=== PATIENT | female | born 1945 | race Caucasian/White ===

== ENCOUNTER → 2017-07-23 | Outpatient (CLI) | payer OTHER ==
[~2017-07-23] MED LIST: ACET-1256 PO; AMIO200T4 PO; CARV6.25 PO; DILT90TA PO; DOCU100C31 PO; FLM4 PO; FLUC100T4 PO; GADAVIST IV PRN; ISR/30 PO; LOSA50TA6 PO; MECL1TAB40 PO; NYSS/ PO; PANT40TA PO; POTA20TA16 PO; SENN-61 PO; SERT25TA PO
--- NOTE | 2017-07-23 14:28 | DIAGNOSTIC IMAGING REPORT ---
MRI OF THE BRAIN WITHOUT AND WITH IV CONTRAST CLINICAL HISTORY: I61.9 Intracerebral [id number] Pontine [id number] headaches, vertigo. COMPARISON STUDY: No previous studies for comparison. TECHNIQUE: MRI of the brain was performed from the vertex to the skull base utilizing various T1 and T2 weighted sequences. Following the IV administration of 5 mL of Gadavist contrast, additional enhanced images were obtained. FINDINGS: Sagittal T1, axial diffusion, proton density and T2 weighted axial, coronal FLAIR, and pre and post axial T1-weighted images were acquired. These were supplemented with post gadolinium coronal T1 weighted images. No intra or extra-axial mass lesions are visualized. Axial diffusion-weighted images reveal no evidence of acute or subacute infarction. There is no evidence of ventricular dilatation. Proton density T2-weighted and FLAIR images reveal scattered foci of increased T2 signal within the white matter, likely on a small vessel basis. There are no abnormal flow voids. There is an equivocal focus of hemosiderin deposition versus partial volume averaging in the region of the superior colliculus. There is a right maxilla sinus retention cyst. There is no evidence of pathologic enhancement. IMPRESSION: 1. No acute intracranial findings 2. The previously reported pontine hemorrhage is not visualized. There is no hydrocephalus. 3. No evidence of acute or subacute infarction 4. No evidence of intracranial mass 5. Equivocal small focus of hemosiderin deposition in the region of the superior colliculus. Electronically signed by: Perez Murillo M.D. 07/23/2017 2:26 PM Dictated Date/Time: 07/23/2017 2:17 PM
== END | disposition home or self-care (01) ==
LOC: C.MRI 12:57
PROVIDERS: ATTEND Psychiatry & Neurology Neurology
DX: H53.2 Diplopia (principal); I61.3 Nontraumatic intracerebral hemorrhage in brain stem; R51 Headache; S06.9X0A Unspecified intracranial injury without loss of consciousness, initial encounter; X58.XXXA Exposure to other specified factors, initial encounter

== ENCOUNTER 2024-01-13 17:31 | Inpatient (IN) ==
--- NOTE | 2024-01-13 17:38 | ED Triage Note ---
Date of Service January 13, 2024 Provider in Triage Author: Miroslava Gracia History of Present Illness This patient was briefly evaluated while in triage. An abbreviated physical exam was performed. This patient is a 78-year-old Female who presents to the ED for evaluation of chest pain. The pain was central and radiated to the left side of her chest. Having some mild SOB with the symptoms as well. The symptoms started at 2 am yesterday morning. The symptoms lasted for 5 hours. [place] very sluggish yesterday as well. Has not had any chest pain since 5 hrs after the symptoms started. She saw her PCP and had an EKG that showed changes compared to her last EKG. Has 5 cardiac stents currently. She is not on a blood thinner. She is on a baby aspirin. She took a baby aspirin this morning when she woke up. Physical Exam GENERAL: Non-toxic and in no acute distress. HEENT: Pupils equal. No obvious scleral icterus. HEART: Regular rate and rhythm. LUNGS: Clear to auscultation. No accessory muscle use. ABDOMEN: Soft, non-tender to palpation. NEURO: Alert and oriented. No obvious neurological deficits on quick neuro exam. Initial orders for labs and / or imaging were placed and patient was placed in the waiting area until a bed is available. Please see further documentation for the full ED course. MDM / Impression Impression Impression: Chest pain, Elevated troponin
[2024-01-13 18:13] LABS: Basophils # (auto) 0.04 K/uL (0.00-0.20); Basophils % (auto) 0.5 %; Eosinophils # (auto) 0.14 K/uL (0.00-0.50); Eosinophils % (auto) 1.7 %; Hematocrit (blood only) 41.5 % (37.0-47.0); Hemoglobin 14.5 g/dl (12.0-16.0); Immature Granulocytes # (auto) 0.02 K/uL (0.01-0.20); Immature Granulocytes % (auto) 0.2 %; Lymphocytes # (auto) 2.55 K/uL (1.20-3.40); Lymphocytes % (auto) 31.8 %; Mean Corpuscular Hemoglobin 31.1 pg (25.0-34.0); Mean Corpuscular Hgb Conc 34.9 g/dL (32.0-36.0); Mean Corpuscular Volume 89.1 fL (80.0-100.0); Mean Platelet Volume 9.1 fL (9.4-12.4); Monocytes # (auto) 0.51 K/uL (0.11-0.59); Monocytes % (auto) 6.4 %; Neutrophils # (auto) 4.77 K/uL (1.40-6.50); Neutrophils % (auto) 59.4 %; Platelet Count 407 K/uL (130-400); RDW Coefficient of Variation 11.8 % (11.5-14.5); RDW Standard Deviation 37.7 fL (36.4-46.3); Red Blood Count 4.66 M/uL (4.20-5.40); White Blood Count 8.03 K/ul (4.8-10.8)
--- NOTE | 2024-01-13 18:27 | XRay Report ---
SINGLE VIEW CHEST CLINICAL HISTORY: Atypical chest pain FINDINGS: A PA chest radiograph is obtained. No prior studies are available for comparison at the hal[place] e of dictation. The heart is mildly enlarged noting atherosclerotic calcification of the thoracic aor ta. The pulmonary vasculature is noncongested. The lungs and pleural spaces are clear. No pneumothora x is seen. The skeletal structures are osteopenic. The bony thorax is grossly intact. Cholecystectomy clips are noted in the right upper quadrant. An electronic device projects over the heart. IMPRESSION: Mild cardiomegaly with no active disease in the chest. ACT 112: Negative or not required by law. Electronically signed by: Abner Barakat M.D. 01/13/2024 6:25 PM
[2024-01-13 18:30] LABS: Albumin Globulin Ratio 1.5 (0.9-2); Albumin Level 4.5 gm/dl (3.4-5.0); BUN Creatinine Ratio 15.6 (10-20); Bilirubin,Total 0.7 mg/dl (0.2-1.0); Calcium 10.1 mg/dl (8.6-10.3); Creatinine Clr Calc Pharmacy 37.6 ml/min; Est GFR (Non-African American) 60.4 ml/min; Globulin 3.1 gm/dl (2.5-4.0); Magnesium 1.7 mg/dl (1.7-2.4); Potassium 3.1 mmol/L (3.5-5.1); Total Protein 7.6 gm/dl (6.0-8.3)
[2024-01-13 18:36] LABS: Troponin I High Sensitivity 20.9 pg/ml (0-14)
[2024-01-13 18:39] LABS: Partial Thromboplastin Time 28 Seconds (21-31); Prothrombin Time 10.4 Seconds (9.0-12.0)
[2024-01-13] MEDS: ASPIRIN 81 MG CHEW PO STA (18:43)
--- NOTE | 2024-01-13 19:15 | Emergency Department Note ---
History of Present Illness General Chief Complaint: Referred by Doctor Stated Complaint: MIGHT HAVE HAD A HEART ATTACK Time Seen by Provider: 01/13/24 18:25 History of Present Illness Provider Complaint: chest pain Onset (ago): day(s) 3 Duration: intermittent and improved Onset: during rest Pain Location: substernal Pain Radiation: jaw/teeth Quality: + heaviness Relieved By: + nothing Exacerbated By: + nothing Context: no recent illness, no recent surgery, no recent immobilization, no recent travel, no trauma/injury or no new medications Associated symptoms: + dyspnea and + cough; no nausea, no vomiting or no palpitations Home Medications Medication Instructions Recorded Confirmed Type aspirin 81 mg tablet,delayed 81 mg PO DAILY 04/28/19 04/28/19 History release (Giovanni Low Dose Aspirin) carvedilol 12.5 mg tablet 12.5 mg PO BID 11/07/20 11/07/20 History fluticasone propionate 50 2 spray intranasal DAILY #15.8 mL 11/07/20 11/07/20 Rx mcg/actuation nasal spray,suspension hydrochlorothiazide 25 mg tablet 25 mg PO QPM 11/07/20 11/07/20 History meclizine 12.5 mg tablet 12.5 mg PO TID PRN 11/07/20 11/07/20 History omeprazole 20 mg capsule,delayed 20 mg PO DAILY 11/07/20 11/07/20 History release valsartan 320 mg tablet 320 mg PO DAILY 11/07/20 11/07/20 History Allergies Allergy/AdvReac Type Severity Reaction Status Date / Time morphine Allergy Unknown HIVES ALL Verified 11/07/20 14:45 OVER BODY, INCREASED BP Penicillins Allergy Unknown CAUSED Verified 11/07/20 14:45 C-DIFF vancomycin Allergy Unknown HIVES, Verified 11/07/20 14:45 ELEVATED BP Past Med/Surg History Problem List (Updated 01/13/24 @ 20:12 by Rigo Calderon MD) Elevated troponin (Acute) Chest pain (Acute) Sensorineural hearing loss (SNHL) of both ears Vertigo Hypertension Medical History Heart disease Stroke H/O gastroesophageal reflux (GERD) Surgical History History of brain surgery brain hemorrhage - 2017 History of tonsillectomy History of hernia repair History of heart artery stent Family History Father Hearing loss Brother Cancer Sister Cancer Social History Smoking Status: Never smoker Do You Dip or Chew Tobacco: No; Hx Alcohol Use: No Hx Substance Use: No Preferred Language: Japanese Communication Ability: Effective Beliefs That Will Affect Care: None marital status: Current Living Situation: Spouse current occupational status: retired How many Children do You have: 2 Feels Safe at Home: Yes Physical Exam Vital Signs Vital Signs - 24 hr 01/13/24 17:35 01/13/24 18:43 01/13/24 18:43 Temperature 36.3 C L Temperature Source Temporal Artery Scan Pulse Rate 59 L Pulse Rate [Apical] 61 Respiratory Rate 20 20 Respiratory Effort / Characteristics Non-Labored Respiratory Depth Normal Blood Pressure 220/73 H Blood Pressure [Left Arm] 243/105 H Blood Pressure Mean 122 Blood Pressure Mean [Left Arm] 151 Pulse Oximetry 97 95 95 Oxygen Delivery Method Room Air Room Air Oxygen Flow Rate Sepsis Recent Fever Within 48 Hours No Sepsis New/Unexplained Change in Mental Status N/A Sepsis Action Taken by Nursing No Action Required 01/13/24 18:43 01/13/24 18:55 01/13/24 18:55 Temperature Temperature Source Pulse Rate 60 Pulse Rate [Apical] Respiratory Rate Respiratory Effort / Characteristics Respiratory Depth Blood Pressure Blood Pressure [Left Arm] Blood Pressure Mean Blood Pressure Mean [Left Arm] Pulse Oximetry 85 L 94 Oxygen Delivery Method Room Air Nasal Cannula Oxygen Flow Rate 2 Sepsis Recent Fever Within 48 Hours Sepsis New/Unexplained Change in Mental Status Sepsis Action Taken by Nursing Physical Exam GENERAL: oriented to person, place, and time. appears well-developed and well- nourished. HENT: Exam performed. - Head: Normocephalic and atraumatic. EYES: Conjunctivae and EOM are normal. Right eye exhibits no discharge. Left eye exhibits no discharge. No scleral icterus. NECK: Normal range of motion. Neck supple. No JVD present. CV: Normal rate, regular rhythm, normal heart sounds and intact distal pulses. There is no peripheral edema. Palpable radial pulses bue. PULM/CHEST: Effort normal and breath sounds normal. No respiratory distress. No stridor. no wheezes. no rales. ABD: The abdomen is soft. There is no tenderness. NEURO: Motor and sensation grossly intact. SKIN: Skin is warm and dry. He is not diaphoretic. PSYCH: normal mood and affect. Behavior is normal. Judgment and thought content normal. Course Course 1824: The patient was evaluated in room D2A. A complete history and physical exam was performed Administered Medications Discontinued Medications Aspirin (Aspirin 81 Mg Chew) 324 mg PO NOW STA Stop: 01/13/24 18:40 Last Admin: 01/13/24 18:43 Dose: 324 mg Documented By: DANETTE Medical Decision Making Laboratory Data Attestation: I reviewed the patient's lab results. 01/13/24 17:41 01/13/24 17:41 Labs: Lab Results 01/13/24 Range/Units 17:41 WBC 8.03 (4.8-10.8) K/ul RBC 4.66 (4.20-5.40) M/uL Hgb 14.5 (12.0-16.0) g/dl Hct 41.5 (37.0-47.0) % MCV 89.1 (80.0-100.0) fL MCH 31.1 (25.0-34.0) pg MCHC 34.9 (32.0-36.0) g/dL RDW Std Deviation 37.7 (36.4-46.3) fL RDW Coeff of Viki 11.8 (11.5-14.5) % Plt Count 407 H (130-400) K/uL MPV 9.1 L (9.4-12.4) fL Immature Gran % (Auto) 0.2 % Neut % (Auto) 59.4 % Lymph % (Auto) 31.8 % Harvey % (Auto) 6.4 % Eos % (Auto) 1.7 % Baso % (Auto) 0.5 % Neut # (Auto) 4.77 (1.40-6.50) K/uL Lymph # (Auto) 2.55 (1.20-3.40) K/uL Harvey # (Auto) 0.51 (0.11-0.59) K/uL Eos # (Auto) 0.14 (0.00-0.50) K/uL Baso # (Auto) 0.04 (0.00-0.20) K/uL Immature Gran # (Auto) 0.02 (0.01-0.20) K/uL PT 10.4 (9.0-12.0) Seconds INR 1.0 (0.9-1.1) APTT 28 (21-31) Seconds PTT Ratio 1.0 Sodium 132 L (136-145) mmol/L Potassium 3.1 L (3.5-5.1) mmol/L Chloride 90 L (98-107) mmol/L Carbon Dioxide 35 H (21-32) mmol/L Anion Gap 7 (3-11) BUN 14 (6-23) mg/dl Creatinine 0.90 (0.6-1.2) mg/dl Est Cr Clr Drug Dosing 37.6 ml/min Est GFR ( Amer) 70.0 ml/min Est GFR (Non-Af Amer) 60.4 ml/min BUN/Creatinine Ratio 15.6 (10-20) Glucose 88 (70-99(Fasting)) mg/dl Calcium 10.1 (8.6-10.3) mg/dl Magnesium 1.7 (1.7-2.4) mg/dl Total Bilirubin 0.7 (0.2-1.0) mg/dl AST 27 (13-39) U/L ALT 21 (7-52) U/L Alkaline Phosphatase 49 (34-104) U/L Troponin I High Sens 20.9 H (0-14) pg/ml Total Protein 7.6 (6.0-8.3) gm/dl Albumin 4.5 (3.4-5.0) gm/dl Globulin 3.1 (2.5-4.0) gm/dl Albumin/Globulin Ratio 1.5 (0.9-2) Lipase 39 (11-82) U/L Imaging Data Chest x-ray: Attestation: I personally reviewed and interpreted this imaging study as follows: My impression: Chest x-ray negative. Airway clear. No pneumothorax. No consolidation. No cardiomegaly or cephalization.. No free air under the diaphragm. No fractures of the skeletal structures. Radiologist's impression: Chest X-Ray 01/13/24 17:39 SINGLE VIEW CHEST CLINICAL HISTORY: Atypical chest pain FINDINGS: A PA chest radiograph is obtained. No prior studies are available for comparison at the time of dictation. The heart is mildly enlarged noting atherosclerotic calcification of the thoracic aorta. The pulmonary vasculature is noncongested. The lungs and pleural spaces are clear. No pneumothorax is seen. The skeletal structures are osteopenic. The bony thorax is grossly intact. Cholecystectomy clips are noted in the right upper quadrant. An electronic device projects over the heart. IMPRESSION: Mild cardiomegaly with no active disease in the chest. ACT 112: Negative or not required by law. Electronically signed by: Abner Barakat M.D. 01/13/2024 6:25 PM ECG Data Attestation: I personally reviewed and interpreted this ECG as follows: Rate (beats per minute): 56 Rhythm: normal sinus Findings: + RBBB; no ST depression, no ST elevation or no prolonged QT MDM Narrative Cardiac monitoring: An order was placed for continuous cardiac monitoring. The monitor shows a rate of 60 with sinus rhythm interpreted by me Vital signs stable. Labs show mildly elevated high-sensitivity troponin. Patient be admitted to the [facility] hospitalist team Erik Sellers working with Dr. Zepeda aware of the patient. Impression & Plan Chest pain, Elevated troponin Discharge Plan Visit Data Chief Complaint: Referred by Doctor Stated Complaint: MIGHT HAVE HAD A HEART ATTACK ED Provider: Rigo Calderon Discharge Problem: Chest pain, Elevated troponin Patient Disposition: Admitted As Inpatient Forms Stand Alone Forms: My [facility] Prescriptions Prescriptions: No Action carvedilol 12.5 mg tablet 12.5 mg PO BID Rx Instructions: must administer with a meal/food valsartan 320 mg tablet 320 mg PO DAILY hydrochlorothiazide 25 mg tablet 25 mg PO QPM meclizine 12.5 mg tablet 12.5 mg PO TID PRN omeprazole 20 mg capsule,delayed release(DR/EC) 20 mg PO DAILY fluticasone propionate 50 mcg/actuation spray,suspension 2 spray intranasal DAILY Qty: 15.8 2RF Rx Instructions: administer into each nostril aspirin [Giovanni Low Dose Aspirin] 81 mg Tablet,Delayed Release (Dr/Ec) 81 mg PO DAILY Referrals Referrals: Betsy Myrick MD [Primary Care Provider] -
--- NOTE | 2024-01-13 19:46 | History & Physical Report ---
Date of Service January 13, 2024 Assessment & Plan (1) Hypertension: Plan: -Admit to the PCU on tele and pusle oximetry -Currently hypertensive with systolic BP in the 220's -Patient was sent to the ED from her PCP's office due to chest discomfort the morning of 01/11, HTN, and concern for possible new ECG changes -Patient has a long hx of resistant HTN, denies missing recent doses of her antihypertensives -Denies current chest discomfort, headache, vision changes (has double vision at baseline since last stroke) -Initial high sen trop elevated at 20, 2 hour repeat is in process -ECG today does have a RBBB, unsure if this is new -Will continue her home Valsartan, metoprolol, and amiodarone -Will hold her HCTZ for now with her hypokalemia -Will add prn IV hydralazine for systolic BP >180 mmhg -Will obtain TTE tomorrow and consult cardiology -Will replete potassium to 4.0 and keep mag at 2.0 -BL RICHARD's for DVT PPX -HH diet, NPO at midnight in case of heart cath tomorrow -AM CBC, CMP, mag, PT/INR (2) Chest pain: Plan: -Patient experienced left-sided chest pain in the early am of 01/11 during what she believes was an episode of afib -Currently in sinus bradycardia with possible new RBBB -Rest of care per HTN plan (3) Elevated troponin: Plan: -Initial high sen trop of 20 -No chest pain today -Possible new RBBB on ECG today -Will follow repeat high sen trop -Will continue to monitor on tele -If repeat high sen trop is increasing will trend overnight -Follow TTE and Cardiology consult tomorrow (4) Hypokalemia: Plan: -Noted to be 3.1 in the ED -Mag is 1.7 -Likely due to HCTZ use -Will give 40 meq PO KCL in tablet form and an additional 20 meq PO KCL powder on admission -Continue to monitor on tele -Hold HCTZ for now -Monitor am electrolytes Plan The patient was discussed with Dr. 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 On arrival to the ED she was noted to be hypertensive at 220/73, hypoxic at 85% on RA, but otherwise stable. Labs were significant for a potassium of 3.1, sodium of 132, mag of 1.7, and initial high sen trop of 20. Chest xray was read as negative for acute findings. ECG today shows sinus bradycardia with 1st degree AV block and RBBB (no previous ECG's in our system to compare to). Prior to admission the patient was given 324 mg Aspirin. At the time of the exam the patient was sitting in bed in no acute distress, still hypertensive with systolics in the 220's. States that she has always had issues with high blood pressure. Is normally in NSR but can usually feel when she goes into afib. States that she was woken from sleep the morning of 01/11 with what she thinks was afib. Caused left-sided chest discomfort which resolved after approximately one hour. Denies the discomfort radiating anywhere else. Currently is chest pain free. Has been taking her antihypertensives as prescribed without missed doses recently. No recent fever, chills, SOB, cough, hemoptysis, nausea, vomiting, diarrhea, dysuria, hematuria, melena, LE swelling, and recent trauma. She is a full code code and her would make medical decisions for her if she cannot make them herself. Please refer to Dr. Jc's attestation for any changes to the treatment plan Allergies Allergy/AdvReac Type Severity Reaction Status Date / Time morphine Allergy Unknown HIVES ALL Verified 01/13/24 20:55 OVER BODY, INCREASED BP Penicillins Allergy Unknown CAUSED Verified 01/13/24 20:55 C-DIFF vancomycin Allergy Unknown HIVES, Verified 01/13/24 20:55 ELEVATED BP Home Medications Medication Instructions Recorded Confirmed Type aspirin 81 mg tablet,delayed 81 mg PO QDL 04/28/19 01/13/24 History release (Giovanni Low Dose Aspirin) hydrochlorothiazide 25 mg tablet 25 mg PO QDL 11/07/20 01/13/24 History omeprazole 20 mg capsule,delayed 20 mg PO DAILY PRN Acid Reflux 11/07/20 01/13/24 History release valsartan 320 mg tablet 320 mg PO QDL 11/07/20 01/13/24 History amiodarone 200 mg tablet 100 mg PO QPM 01/13/24 01/13/24 History fluoxetine 10 mg capsule 10 mg PO QPM 01/13/24 01/13/24 History metoprolol succinate 100 mg 100 mg PO HS 01/13/24 01/13/24 History tablet,extended release 24 hr galcanezumab-gnlm 120 mg/mL See Rx Instructions .Route .COMPLEX 01/14/24 01/14/24 History subcutaneous pen injector (Emgality Pen) Past Med/Surg History Problem List Hypokalemia Elevated troponin (Acute) Chest pain (Acute) Sensorineural hearing loss (SNHL) of both ears Vertigo Hypertension Medical History Heart disease Stroke H/O gastroesophageal reflux (GERD) Surgical History History of brain surgery brain hemorrhage - 2017 History of tonsillectomy History of hernia repair History of heart artery stent Family History Father Hearing loss Brother Cancer Sister Cancer Social History Smoking Status: Never smoker Do You Dip or Chew Tobacco: No; Hx Alcohol Use: No Hx Substance Use: No Preferred Language: French Communication Ability: Effective 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 Beliefs That Will Affect Care: None marital status: Current Living Situation: Spouse current occupational status: retired How many Children do You have: 2 Feels Safe at Home: Yes Assistive Devices: Cane and Raised Toilet Seat Physical Exam Physical Exam: Physical Exam: General: In no acute distress, stated age, well-nourished, non-toxic appearing HEENT: Normocephalic, atraumatic, no scleral icterus, pupils around round, symmetrical, and reactive to light, moist mucus membranes, trachea midline, no thyromegaly Chest/Pulm: No respiratory distress, symmetrical chest expansion, clear breath sounds throughout Cardiac: RRR, no murmurs noted Abdomen: Negative for ascites and bruising, normoactive bowel sounds, soft, non-tender to palpation throughout Musculoskeletal: Symmetrical and without signs of acute trauma, upper and lower extremities with full ROM, no atrophy, spasticity, or flaccidity Extremities: Radial, dorsalis pedis, and posterior tibial pulses are intact and symmetrical, no edema noted in the BL LE's Skin: Warm, dry, no rashes , lesions, or scars noted Neuro: Alert and oriented to person, place, month, year, and president, no focal defects, no tremors noted Psych: No acute distress, calm and cooperative during the exam Results & Data Results & Data Vital Signs (Past 12 Hours) Vital Signs Temp Pulse Pulse Resp BP BP Pulse Ox 01/13/24 18:55 94 01/13/24 18:55 85 L 01/13/24 18:43 60 01/13/24 18:43 95 01/13/24 18:43 61 20 243/105 H 95 01/13/24 17:35 36.3 C L 59 L 20 220/73 H 97 O2 Del Method O2 Flow Rate 01/13/24 18:55 Nasal Cannula 2 01/13/24 18:55 Room Air 01/13/24 18:43 01/13/24 18:43 Room Air 01/13/24 18:43 Room Air 01/13/24 17:35 Laboratory Results Abnormal lab results 01/13/24 Range/Units 17:41 Plt Count 407 H (130-400) K/uL MPV 9.1 L (9.4-12.4) fL Sodium 132 L (136-145) mmol/L Potassium 3.1 L (3.5-5.1) mmol/L Chloride 90 L (98-107) mmol/L Carbon Dioxide 35 H (21-32) mmol/L Troponin I High Sens 20.9 H (0-14) pg/ml Diagnostic Findings Chest X-Ray 01/13/24 17:39 SINGLE VIEW CHEST CLINICAL HISTORY: Atypical chest pain FINDINGS: A PA chest radiograph is obtained. No prior studies are available for comparison at the time of dictation. The heart is mildly enlarged noting atherosclerotic calcification of the thoracic aorta. The pulmonary vasculature is noncongested. The lungs and pleural spaces are clear. No pneumothorax is seen. The skeletal structures are osteopenic. The bony thorax is grossly intact. Cholecystectomy clips are noted in the right upper quadrant. An electronic device projects over the heart. IMPRESSION: Mild cardiomegaly with no active disease in the chest. ACT 112: Negative or not required by law. Electronically signed by: Abner Barakat M.D. 01/13/2024 6:25 PM ECG Additional Comments: Sinus bradycardia with 1st degree A-V block Right bundle branch block Minimal voltage criteria for LVH, may be normal variant ( R in aVL ) Abnormal ECG No previous ECGs available Code Status & VTE Plan Code Status Full code VTE Prophylaxis Plan VTE Prophylaxis will be ordered: Yes Supervising Physician Co-Signing Physician Notes Attending addendum: I have physically seen this patient, have supervised the LUKE's activities, and agree with the H&P unless as otherwise noted. Assessment and Plan: Elevated troponin/hypertension- The patient will be admitted to telemetry for serial cardiac enzymes, serial EKG's, cardiac rhythm monitoring and a 2-D echocardiogram with Dopplers. Initial troponin 20.9, follow serially Patient had been referred from PCPs office due to chest discomfort and elevated blood pressures in the outpatient setting Systolic 220s in the ED EKG with right bundle branch block with otherwise ST-T changes Hold HCTZ due to electrolyte abnormalities of low sodium, low potassium and low magnesium Continue amiodarone, aspirin, metoprolol succinate, and valsartan Hydralazine 10 mg IV now, and then every 4 hours as needed Unclear if right bundle branch block is new Cardiology has been consulted Electrolyte abnormalities- Low sodium, low potassium and low magnesium likely all secondary to HCTZ, which will be held Replace potassium and magnesium IV, and oral, and recheck laboratories in a.m. PG Care Time/CCT Total # of Minutes Spent Total Time Spent with Patient: Total time spent is greater than 50% in coordination of care (as documented) at patient's floor/unit and/or counseling patient: C[place] [address] INT INP/OBS CARE 3/75MIN Patient Type Established Medical Decision Making High Complexity Diagnoses Hypertension I10 Chest pain R07.9 Elevated troponin R79.89 Hypokalemia E87.6
[2024-01-13] MEDS: POTASSIUM CHLORIDE CRTAB 20 MEQ TABCR PO STA (20:01)
[2024-01-13] MEDS: MAGNESIUM SULFATE / D5W 1 GM/100 ML BAG IV SCH (20:06)
[2024-01-13] MEDS: hydrALAZINE HCL 20 MG/ML VIAL IV PRN (20:12)
[2024-01-13] MEDS ORDERED: METOPROLOL SUCC 50MG EXT REL TAB PO SCH (21:00)
[2024-01-13] MEDS: AMIODARONE 200 MG TAB PO SCH (23:19)
[2024-01-13] MEDS: METOPROLOL SUCC 50MG EXT REL TAB PO SCH (23:21)
[2024-01-13] MEDS: POTASSIUM CHLORIDE 10 MEQ TABCR PO ONE (23:24)
[2024-01-13] MEDS: POTASSIUM CHLORIDE PWD 20 MEQ PACK PO STA (23:46)
[2024-01-13] MEDS: ONDANSETRON INJ 2 MG/ML 2 ML VIAL ONE (23:47)
[2024-01-14] MEDS: NITROGLYCERIN SL 0.4 MG/TAB TAB SL STA (07:56)
--- NOTE | 2024-01-14 07:56 | Electrocardiogram Report ---
Test Reason : Blood Pressure : / mmHG Vent. Rate : 056 BPM Atrial Rate : 056 BPM P-R Int : 220 ms QRS Dur : 148 ms QT Int : 520 ms P-R-T Axes : 063 -02 013 degrees QTc Int : 501 ms Sinus bradycardia with 1st degree A-V block Right bundle branch block Minimal voltage criteria for LVH, may be normal variant ( R in aVL ) Abnormal ECG No previous ECGs available Confirmed by Andrés Loco ([id number]) on 01/14/2024 7:56:37 AM Referred By: Betsy Myrick Confirmed By:Andrés Loco
[2024-01-14] MEDS: FLUoxetine HCL 10 MG CAP PO SCH (08:14)
[2024-01-14] MEDS: ASPIRIN 81 MG ECTAB PO SCH (08:14)
[2024-01-14] MEDS: PANTOprazole 40 MG TAB PO PRN (08:14)
[2024-01-14 08:29] LABS: Albumin Globulin Ratio 1.4 (0.9-2); Albumin Level 3.7 gm/dl (3.4-5.0); BUN Creatinine Ratio 15.4 (10-20); Bilirubin,Total 0.7 mg/dl (0.2-1.0); Calcium 8.7 mg/dl (8.6-10.3); Creatinine Clr Calc Pharmacy 52.1 ml/min; Est GFR (African American) 97.2 ml/min; Est GFR (Non-African American) 83.9 ml/min; Globulin 2.6 gm/dl (2.5-4.0); Magnesium 2.1 mg/dl (1.7-2.4); Potassium 3.6 mmol/L (3.5-5.1); Total Protein 6.3 gm/dl (6.0-8.3)
[2024-01-14 08:30] LABS: Hematocrit (blood only) 36.9 % (37.0-47.0); Hemoglobin 13.1 g/dl (12.0-16.0); Mean Corpuscular Hemoglobin 31.1 pg (25.0-34.0); Mean Corpuscular Hgb Conc 35.5 g/dL (32.0-36.0); Mean Corpuscular Volume 87.6 fL (80.0-100.0); Mean Platelet Volume 9.3 fL (9.4-12.4); Platelet Count 334 K/uL (130-400); RDW Coefficient of Variation 11.7 % (11.5-14.5); RDW Standard Deviation 37.6 fL (36.4-46.3); Red Blood Count 4.21 M/uL (4.20-5.40); White Blood Count 8.04 K/ul (4.8-10.8)
[2024-01-14 08:34] LABS: Troponin I High Sensitivity 47.3 pg/ml (0-14)
--- NOTE | 2024-01-14 09:06 | Hospitalist Progress Note ---
Date of Service January 14, 2024 Assessment & Plan (1) Hypertension: Plan: Significant cardiac hx, stents x 5. Last stent per patient ~2013 Sent to ER per PCP office due to chest discomfort morning 01/11 and HTN w/ possible new EKG changes (although RBBB does not appear to be new) Denied CP/PANDYA/vision changes on admission (double vision baseline since last stroke) HTN emergency w/ BP to 243/105 on admission. Troponin elevation 2nd to demand ischemia from HTN emergency/suspected unstable angina Initial trop 20--> 24.5 on repeat but no third set ordered. K/mag repletion to keep ~4/2 w/ hx paroxysmal afib (reported irregular rhythm on BP check at home Thursday night, also thought her nitro was and did not take) Continued her home Valsartan, metoprolol, and amiodarone HCTZ HELD for now with her hypokalemia IV hydralazine for systolic BP >180 mmhg prn ECHO ordered, DVT proph w/ b/l teds, NPO at midnight for possible cath 01/13 Reporting CP 7/10 this morning across precordium, ordered Nitro SL x 1 w/ improvement to 08/26 (of note, had nitro at home but didn't take on Thursday night as she thought it was ) Troponin added to labs, 24.5--> 47.5 --> repeat following AM meds and IVF for dehydration on exam to 35.5 EKG Initially NPO for possible cath today, notified cardiology Added NS @ 60cc/hr while NPO HCTZ remains on hold, Na 130. Checking TSH/serum osm ECHO w/ preserved LV systolic function, EF 55-60%. no segmental wma. Normal RV size and function. Mild MR/TR, trace AI Per Dr Bashir Troy to perform cath tomorrow. Diet ordered and NPO at midnight Nitropaste to be ordered per [facility] NPO at midnight for cath tomorrow morning with Dr Camejo Planning for cath this afternoon with Dr Camejo (2) Chest pain: Plan: Appears c/w unstable angina Reported L sided CP AM 01/11 during what was reported as possible episode of afib Currently SB on monitor, see above Nitro SL x 1 this morning, added prn. Did get last evening w/ improvement however did have headache (not worst ever, no focal deficit on exam) * Also chronic headache/migraine -- tylenol IV ordered while NPO this morning and chronic Cervical spine disease/bulging disc but neuro did not rec any operation given her significant hx. Does take UBRELVY as needed and monthly EMGALITY ( to bring UBRELVY if needed) Cards consulted and added nitropaste q6h scheduled while awaiting cath which should help w BP Instructed to alert nursing/staff know if experiencing any significant discomfort (3) Elevated troponin: Plan: See above, planning for cath in AM (4) Hypokalemia: Plan: 3.1 on admission, mag 1.7 - replacement ordered. Suspected 2nd to HCTZ use Labs added for today -- K improved to 3.6, additional Kcl to be ordered. Mag 2.1 HCTZ on hold as above Additional 20meq kcl to be ordered to keep K closer to 4 Monitor labs on repeat Plan continued inpatient stay NPO at midnight for cath in AM Admission and Anticipated Discharge Date Admission Date: January 13, 2024 Supervising Physician Co-Signing Physician Notes The patient was not seen by me. The chart was reviewed. Case discussed with NAIMA Araiza. Agree with assessment and plan Subjective Evaluation around 1130, laying in bed. CP 7/10 this morning --> 1/10 w/ nitro, at rest. Eval by Albina Reis not too long ago, pain was at bay but came back and not bad right now. Weeks-month has had occasional shortness of breath with excessive conversation. Does have occasional cough, has had since she was at [facility] -- ever since tubes down nose/throat. Had a hard time getting tube down her nose and believes removed roughly. Does have a lot fo neck pain, chronic. Follows with Dr Mon/assistant hairstylist. Complaints of "neck ache". CT scan noted bulging disc between C5-C6. Asked Dr Mon if anything able to be done. Tilting head backwards makes her sick. Sometimes bending over causes her to have headache. Baseline equilibrium issues. Utilized heating pad in the past. Take emgality, due on the 02/21. Usually on ubrevly. Thursday night into Thursday morning and did take a ubrevly. Only takes in emergency. She does have nitro pills but when she looked at bottle it was half dark and couldn't read in room and thought it was in Aug 2023 (but actually expires August 2024). Takes her aspirin around noon everyday. Ubrevly takes when headache bad enough to turn into migraine. Has been told has cluster headaches. She reports her stroke/brain bleeding was due to coumadin use and elevated INR due to prior providers and she almost diet. Haven't had anything to eat, just water with pulls. First stent ~2000, most recent she believes in 2013. Didn't want to go to ER the other night as didn't want to go to [place]. She notes she does have a lot of stress at home with her /dementia. Has family locally that helps but did move from [place] to [place] [id number], and is STILL not unpacked due to caring for her . Discussed stress/anxiety can contribute to BP as well. She reports that's why she went to PCP for wellness check-up on her newly started Prozac for the depression/anxiety. Physical Exam Physical Exam: General: 78 yo female laying in bed, NAD, anxious appearing at times (does report lot of stress at home) HEENT: head atraumatic, normocephalic, slightly dry mm, +neck discomfort (chronic) baseline double vision since her prior CVA Resp: even/unlabored (although SOB w/ significant/lengthy talking), no significant w/c/r, on room air CV: RRR, faint systolic murmur, no pitting edema/calf tenderness GI: +BS, soft/NT MSK/Neuro: nonfocal, answering questions appropriately, following commands, not confused Psych: AOx3, cooperative/pleasant, anxious/tearful at times about stress Results & Data Results & Data Vital Signs (Past 12 Hours) Vital Signs Temp Pulse Pulse Resp BP Pulse Ox Pulse Ox 01/14/24 07:31 51 L 01/14/24 04:00 52 L 18 150/83 H 97 01/14/24 00:34 58 L 16 144/84 H 93 01/13/24 23:48 36.8 C 51 L 17 144/84 H 96 01/13/24 22:59 51 L 01/13/24 22:15 51 L 12 162/80 H 98 01/13/24 21:36 96 01/13/24 21:10 53 L 12 179/95 H 98 O2 Del Method O2 Del Method 01/14/24 07:31 01/14/24 04:00 Room Air 01/14/24 00:34 Room Air 01/13/24 23:48 Room Air 01/13/24 22:59 01/13/24 22:15 Room Air 01/13/24 21:36 Room Air 01/13/24 21:10 Room Air Laboratory Results 01/14/24 01/13/24 01/13/24 Range/Units 07:58 20:02 17:41 WBC 8.04 8.03 (4.8-10.8) K/ul RBC 4.21 4.66 (4.20-5.40) M/uL Hgb 13.1 14.5 (12.0-16.0) g/dl Hct 36.9 L 41.5 (37.0-47.0) % MCV 87.6 89.1 (80.0-100.0) fL MCH 31.1 31.1 (25.0-34.0) pg MCHC 35.5 34.9 (32.0-36.0) g/dL RDW Std Deviation 37.6 37.7 (36.4-46.3) fL RDW Coeff of Viki 11.7 11.8 (11.5-14.5) % Plt Count 334 407 H (130-400) K/uL MPV 9.3 L 9.1 L (9.4-12.4) fL Immature Gran % (Auto) 0.2 % Neut % (Auto) 59.4 % Lymph % (Auto) 31.8 % [place] % (Auto) 6.4 % Eos % (Auto) 1.7 % Baso % (Auto) 0.5 % Neut # (Auto) 4.77 (1.40-6.50) K/uL Lymph # (Auto) 2.55 (1.20-3.40) K/uL [place] # (Auto) 0.51 (0.11-0.59) K/uL Eos # (Auto) 0.14 (0.00-0.50) K/uL Baso # (Auto) 0.04 (0.00-0.20) K/uL Immature Gran # (Auto) 0.02 (0.01-0.20) K/uL PT 10.4 (9.0-12.0) Seconds INR 1.0 (0.9-1.1) APTT 28 (21-31) Seconds PTT Ratio 1.0 Sodium 130 L 132 L (136-145) mmol/L Potassium 3.6 3.1 L (3.5-5.1) mmol/L Chloride 93 L 90 L (98-107) mmol/L Carbon Dioxide 33 H 35 H (21-32) mmol/L Anion Gap 4 7 (3-11) BUN 10 14 (6-23) mg/dl Creatinine 0.65 0.90 (0.6-1.2) mg/dl Est Cr Clr Drug Dosing 52.1 37.6 ml/min Est GFR ( Amer) 97.2 70.0 ml/min Est GFR (Non-Af Amer) 83.9 60.4 ml/min BUN/Creatinine Ratio 15.4 15.6 (10-20) Glucose 83 88 (70-99(Fasting)) mg/dl Calcium 8.7 10.1 (8.6-10.3) mg/dl Magnesium 2.1 1.7 (1.7-2.4) mg/dl Total Bilirubin 0.7 0.7 (0.2-1.0) mg/dl AST 22 27 (13-39) U/L ALT 16 21 (7-52) U/L Alkaline Phosphatase 41 49 (34-104) U/L Troponin I High Sens 47.3 H D 24.5 H 20.9 H (0-14) pg/ml Total Protein 6.3 7.6 (6.0-8.3) gm/dl Albumin 3.7 4.5 (3.4-5.0) gm/dl Globulin 2.6 3.1 (2.5-4.0) gm/dl Albumin/Globulin Ratio 1.4 1.5 (0.9-2) Lipase 39 (11-82) U/L TSH 3.943 (0.300-4.500) uIu/ml Diagnostic Findings Chest X-Ray 01/13/24 17:39 SINGLE VIEW CHEST CLINICAL HISTORY: Atypical chest pain FINDINGS: A PA chest radiograph is obtained. No prior studies are available for comparison at the time of dictation. The heart is mildly enlarged noting atherosclerotic calcification of the thoracic aorta. The pulmonary vasculature is noncongested. The lungs and pleural spaces are clear. No pneumothorax is seen. The skeletal structures are osteopenic. The bony thorax is grossly intact. Cholecystectomy clips are noted in the right upper quadrant. An electronic device projects over the heart. IMPRESSION: Mild cardiomegaly with no active disease in the chest. ACT 112: Negative or not required by law. Electronically signed by: Abner Barakat M.D. 01/13/2024 6:25 PM PG Care Time/CCT Total # of Minutes Spent Total Time Spent with Patient: Total time spent is greater than 50% in coordination of care (as documented) at patient's floor/unit and/or counseling patient: Coding Level of Care Code 29062 SUB INP/OBS CARE 3/50MIN Diagnoses Hypertension I10 Chest pain R07.9 Elevated troponin R79.89 Hypokalemia E87.6
[2024-01-14] MEDS: SODIUM CHLORIDE 0.9% 1,000 ML IV SCH (09:44)
[2024-01-14 10:11] LABS: Thyroid Stimulating Hormone 3.943 uIu/ml (0.300-4.500)
[2024-01-14] MEDS: HEPARIN SOD 5,000 UNIT/0.5 ML VIAL SQ SCH (10:56)
[2024-01-14] MEDS: VALSARTAN 80 MG TAB PO SCH (10:56)
[2024-01-14] MEDS: PANTOprazole 40 MG in SYRINGE 0 ML IV SCH (10:56)
--- NOTE | 2024-01-14 11:19 | Cardiology Consultation ---
Date of Consultation January 14, 2024 Assessment & Plan (1) Chest pain: (2) Elevated troponin: Plan Impression: 1. Unstable angina 2. Coronary artery disease status post angioplasty and stenting of the RCA 11/2007 and angioplasty and stenting of the LAD 12/2007, repeat cardiac cath eterization 10/2019 12 with stenting of the mid RCA, repeat cardiac catheterization in 2014 with stenting of an unknown vessel in [place] 3. Paroxysmal A-fib on amiodarone 5. Intracranial and intraventricular bleed 04/2017 secondary to elevated INR and hypertensive urgency 6. History of vision difficulty and gait instability status post CVA 7. Hypertension 9. Hyperlipidemia intolerant of all statins and Zetia 10. Negative angiography of the carotids and intracranial arterial system without obvious source of stenosis or cause for her hemorrhage 04/2017 12. Implantable loop recorder secondary syncope and paroxysmal A-fib, now at end-of-life 13 normal carotid ultrasound 07/06/2021 Jessica's troponins were only marginally elevated but her story is convincing for unstable angina. She certainly has long history of CAD with multiple catheterizations and stenting. I did recommend to her that she proceed with cardiac catheterization. We reviewed that there is a 1 in 10,000 risk of serious adverse event such as heart attack, stroke, or . There is a risk for dye nephropathy. There is also risk for bleeding or infection. She is agreeable to proceeding. Her blood pressure is coming under better control but is still elevated. She has a history of labile blood pressures with pressures as low as the 1 teens. Will have her continue with her usual blood pressure regimen at this time. She did note irregular rhythm identified on her blood pressure cuff on the night of the when she was having her chest discomfort. At that time her blood pressure was not significantly elevated, it was in the 140s systolically and 90s diastolically. She did not feel any palpitations. She is continued on amiodarone for her history of A-fib and has been maintaining sinus rhythm so it is unclear if she was indeed having an episode of A-fib that evening. She thinks her heart rate was in the 80s or 90s at that time. She is not anticoagulated because of her history of cerebral hemorrhage. She has an echo pending History of Present Illness Attending Physician: Gume Manzo MD History of Present Illness Ms. Woo presented to the emergency department yesterday evening after visiting her PCP and describing an episode of chest pain. On the she woke up with severe chest pain that spread across her chest but did not radiate into her arms or upper neck lasting 2 hours. She felt very short of breath during that time. It eventually receded and she went back to sleep. When she woke up she felt "all washed out" for the rest of that day. The next day she was feeling a bit better and describes the episode to her PCP. Last night in the emergency department she did have an episode of chest pain that felt like stabbing in the left side and spread across her chest and into her back. She also feels a mild version of this when she gets up to the bathroom as well as shortness of breath and nausea. Her blood pressures were quite elevated On admission, in the 200s systolically. They have come under somewhat better control now but she remains hypertensive. Allergies Allergy/AdvReac Type Severity Reaction Status Date / Time morphine Allergy Unknown HIVES ALL Verified 01/13/24 20:55 OVER BODY, INCREASED BP Penicillins Allergy Unknown CAUSED Verified 01/13/24 20:55 C-DIFF vancomycin Allergy Unknown HIVES, Verified 01/13/24 20:55 ELEVATED BP Home Medications Medication Instructions Recorded Confirmed Type aspirin 81 mg tablet,delayed 81 mg PO QDL 04/28/19 01/13/24 History release (Giovanni Low Dose Aspirin) hydrochlorothiazide 25 mg tablet 25 mg PO QDL 11/07/20 01/13/24 History omeprazole 20 mg capsule,delayed 20 mg PO DAILY PRN Acid Reflux 11/07/20 History release valsartan 320 mg tablet 320 mg PO QDL 11/07/20 01/13/24 History amiodarone 200 mg tablet 100 mg PO QPM 01/13/24 01/13/24 History fluoxetine 10 mg capsule 10 mg PO QPM 01/13/24 01/13/24 History metoprolol succinate 100 mg 100 mg PO HS 01/13/24 01/13/24 History tablet,extended release 24 hr Patient History Medical History Heart disease Stroke H/O gastroesophageal reflux (GERD) Surgical History History of brain surgery brain hemorrhage - 2017 History of tonsillectomy History of hernia repair History of heart artery stent Family History Father Hearing loss Brother Cancer Sister Cancer Social History Smoking Status: Never smoker Do You Dip or Chew Tobacco: No; Hx Alcohol Use: No Hx Substance Use: No Preferred Language: Lithuanian Communication Ability: Effective Ware Dresser Required: No Beliefs That Will Affect Care: None marital status: Current Living Situation: Spouse current occupational status: retired How many Children do You have: 2 Other Information That Helps Us Care for You: No Feels Safe at Home: Yes Assistive Devices: Walker Review of Systems Review of Systems: All systems reviewed & are unremarkable except as noted in HPI & below Physical Exam Constitutional: WD/WN, vitals as above Respiratory: normal respiratory effort, lungs clear to auscultation Cardiovascular: RRR, no murmur, no edema Skin: no rashes, warm and dry Neurologic: moves all extremities and awake Psychiatric: A+Ox3, euthymic affect Results & Data Vital Signs (Past 12 Hours) Vital Signs Temp Pulse Pulse Resp BP BP Pulse Ox 01/14/24 10:30 51 L 19 93 01/14/24 10:01 54 L 18 92 01/14/24 10:01 168/57 H 01/14/24 10:00 64 20 93 01/14/24 09:30 56 L 18 92 01/14/24 09:00 58 L 19 96 01/14/24 08:30 56 L 14 92 01/14/24 08:00 54 L 12 01/14/24 08:00 138/68 01/14/24 07:31 51 L 01/14/24 07:30 52 L 19 92 01/14/24 07:00 53 L 11 L 92 01/14/24 06:30 53 L 13 91 01/14/24 06:00 50 L 16 98 01/14/24 06:00 157/64 H 01/14/24 05:30 56 L 19 97 01/14/24 05:00 51 L 15 97 01/14/24 04:30 50 L 18 98 01/14/24 04:00 50 L 21 97 01/14/24 04:00 150/83 H 01/14/24 04:00 52 L 18 150/83 H 97 01/14/24 03:30 51 L 17 97 01/14/24 03:00 52 L 18 93 01/14/24 02:30 51 L 19 91 01/14/24 02:00 148/121 H 01/14/24 02:00 52 L 18 92 01/14/24 01:30 53 L 10 L 93 01/14/24 01:08 176/56 H 01/14/24 01:08 54 L 30 H 96 01/14/24 01:00 53 L 19 93 01/14/24 00:34 58 L 16 144/84 H 93 01/14/24 00:30 48 L 14 92 01/14/24 00:00 52 L 19 97 01/13/24 23:48 36.8 C 51 L 17 144/84 H 96 01/13/24 23:30 64 22 O2 Del Method 01/14/24 10:30 01/14/24 10:01 01/14/24 10:01 01/14/24 10:00 01/14/24 09:30 01/14/24 09:00 01/14/24 08:30 01/14/24 08:00 01/14/24 08:00 01/14/24 07:31 01/14/24 07:30 01/14/24 07:00 01/14/24 06:30 01/14/24 06:00 01/14/24 06:00 01/14/24 05:30 01/14/24 05:00 01/14/24 04:30 01/14/24 04:00 01/14/24 04:00 01/14/24 04:00 Room Air 01/14/24 03:30 01/14/24 03:00 01/14/24 02:30 01/14/24 02:00 01/14/24 02:00 01/14/24 01:30 01/14/24 01:08 01/14/24 01:08 01/14/24 01:00 01/14/24 00:34 Room Air 01/14/24 00:30 01/14/24 00:00 01/13/24 23:48 Room Air 01/13/24 23:30
[2024-01-14] MEDS ORDERED: ACETAMINOPHEN 1,000 MG/100 ML VIAL IV PRN (11:45)
[2024-01-14] MEDS ORDERED: NITROGLYCERIN SL 0.4 MG/TAB TAB SL PRN (11:46)
[2024-01-14] MEDS: ACETAMINOPHEN 1,000 MG/100 ML VIAL IV STA (12:15)
[2024-01-14] MEDS: NITROGLYCERIN 2% OINTMENT 30GM TUBE EXT SCH (12:38)
--- NOTE | 2024-01-14 14:07 | XCELERA ---
[id number]
[2024-01-14] MEDS: POTASSIUM CHLORIDE CRTAB 20 MEQ TABCR PO STA (15:35)
[2024-01-14] MEDS: LOPERAMIDE HCL 2 MG CAP PO PRN (17:20)
[2024-01-14] MEDS: ACETAMINOPHEN 325 MG TAB PO PRN (19:40)
[2024-01-14] MEDS: PROCHLORPERAZINE 10 MG in SYRINGE 8 ML IV ONE (21:22)
--- OUTSIDE RECORDS SUMMARY | 2024-01-14 22:24 | External Medical Summary | Continuity of Care Document ---
Author Name Unknown Organization [facility] [address] [facility] Address [address] [place], [place] [id number] Care Team Providers Care Fermenter Helper Name Role Phone Betsy Myrick Primary Care Physician [phone] Encounter [facility] [id number] Date(s): 11/04/23 - 11/04/23 [facility] [address], [address] [place] [address] [phone] Encounter Diagnosis Anxious depression(Discharge Diagnosis) - 11/04/23 Afib(Discharge Diagnosis) - 11/03/23 Difficulty swallowing(Discharge Diagnosis) - 11/03/23 Abnormal weight loss(Discharge Diagnosis) - 11/03/23 Benign essential HTN(Discharge Diagnosis) - 11/03/23 Hypokalemia(Discharge Diagnosis) - 11/04/23 Discharge Disposition: Home or Self Care Attending Physician: MD Myrick Amy L Allergies, Adverse Reactions, Alerts Substance Reaction Severity Status vancomycin flushed neck/face/high BP Ac tive morphine unknown Active Statins (HMG-CoA reductase inhibitors) msucle weakness Active Zetia weakness Active Assessment and Plan Extracted from: Title:Office Visit Note Author:MD Myrick Amy L D ate:11/04/23 1.Anxious depression Status : chronic, worse. Data : hx reviewed. Goal : achieve & maintain remission. Plan : discussed options formeds. Restart Prozac 10mg daily, DEZ.Recheck on med in 2 months.Call sooner if she has problems with meds. 2.Abnormal weight loss STATUS: Chronic stable. DATA: weights reviewed. GOAL: avoid further weight loss, hopefully, regain weight. PLAN: Cont current weight monitoring, julia since she is not continuing to lose weight. 3.Afib STATUS : chronic, stable. DATA : hx & exam reviewed. GOAL : maintain euvolemia, stable cardiac rhythm. PLAN : reviewed recent labs to includeelectrolytes, all satisfactory, except slightly low potassium. HR is controlled. Not anti-coagulated, due to hx of hemorrhagic stroke. Continue cardiology follow up. 4.Difficulty swallowing STATUS: Chronic, somewhat improved. DATA: hx reviewed. GOAL: Maintain stability. PLAN: Cont current monitoring. 5.Benign essential HTN Status : chronic, well-controlled. Data : BP readings reviewed. Goal : maintain normal BP. Plan : continue current BP meds. 6.Hypokalemia STATUS: new dx, mild & asymptomatic. DATA: Labs reviewed. GOAL: Maintain stable electrolytes. PLAN: she is well aware of foods high in potassium, to try to maximize these in her diet. Return in 2 months for recheck on meds. Time:Total time spent with this patient on day of evaluation including chart review, ordering, education and coordination of care elements: _32 minutes Immunizations Given and Recorded Vaccine Date Status Refusal Reason SARS-CoV-2 (COVID-19) mRNA BNT-162b2 vax 1 11/09/20 Recorded SARS-CoV-2 (COVID-19) mRNA BNT-162b2 vax 2 10/19/20 Recorded influenza virus vaccine, inactivated 08/02/19 Give n influenza virus vaccine, inactivated 08/24/18 Mateus rded pneumococcal 13-valent vaccine 05/15/15 Recorded 1Result Comment: 2021-09-25: Historical information-source unspecified 2Result Comment: 2021-09-25: Historical information-source unspecified Medications Eda Hives 24 Hour 180 mg oral tablet Start: 05/20/23 14:15:00 EDT Start Date: 05/20/23 Status: Ordered amiodarone 200 mg oral tablet Start: 09/08/23 13:01:00 EST, See Instructions, Disp# 30 tab, Refills: 11, 1/2 tab PO Daily, Note to Pharmacy: change in dose, Pharmacy: [facility] Start Date: 09/08/23 Status: Ordered aspirin 81 mg oral delayed release tablet Start: 09/30/17 14:05:00, 1 tab, PO, Daily Start Date: 09/30/17 Status: Ordered Constulose 10 g/15 mL oral syrup Start: 04/21/23 15:41:00 EDT, See Instructions, Disp# 400 mL, Refills: 6, TAKE 15 ML BY MOUTH DAILYAS NEEDED FOR CONSTIPATION, Pharmacy: [facility] Start Date: 04/21/23 Status: Ordered Emgality Prefilled Pen Start: 01/16/23 11:42:00 EDT Start Date: 01/16/23 Status: Ordered FLUoxetine 10 mg oral capsule Start: 11/04/23 13:48:00 EDT, 1 cap, PO, Daily, Disp# 30 cap, Refills: 6, Pharmacy: [facility] [id number] Start Date: 11/04/23 Status: Ordered fluticasone 50 mcg/inh nasal spray Start: 01/10/22 12:34:00 EDT, 1 spray, each nostril, Daily, Disp# 1 each, Refills: 11, Pharmacy: [facility] [id number] Start Date: 01/10/22 Status: Ordered hydroCHLOROthiazide 25 mg oral tablet TAKE 1 TABLET BY MOUTH ONCE DAILY Start Date: 06/08/23 Status: Ordered nitroglycerin 0.4 mg sublingual tablet Start: 06/05/21 14:54:00 EDT, 1 tab, SL, q5min, Disp# 25 tab, Refills: 1, PRN: as needed for chest pain, Pharmacy: [facility] [id number] Start Date: 06/05/21 Status: Ordered ondansetron 4 mg oral tablet Start: 05/01/23 12:41:00 EDT, See Instructions, Disp# 20 tab, Refills: 1, TAKE 1 TABLET BY MOUTH EVERY 8 HOURS NEEDED FOR NAUSEA AND VOMITING, Pharmacy: [facility] [id number] Start Date: 05/01/23 Status: Ordered Toprol-XL 100 mg oral tablet, extended release Start: 06/12/23 9:39:00 EDT, 1 tab, PO, qhs, Disp# 90 tab, Refills: 3, Pharmacy: [facility] [id number] Start Date: 06/12/23 Status: Ordered Ubrelvy 50 mg oral tablet Start: 11/07/22 14:00:00 EDT, 1 tab, PO, ONCE, Disp# 10 tab, Refills: 1, take 1 tab by mouth at theonset of migraine symptoms may repeat dose in 2 hours if needed do not take more than 2 doses in 1 day and 4 doses in 1 week, Pharmacy: [facility] Start Date: 11/07/22 Status: Ordered valsartan 320 mg oral tablet Start: 02/05/23 11:37:00 EDT, See Instructions, Disp# 90 tab, Refills: 3, Take 1 tablet by mouth once daily, Pharmacy: [id number] Start Date: 02/05/23 Status: Ordered Mental Status 11/04/23 Barriers to Learning one year None evide nt Mandatory Health Literacy Documentation Yes Health Literacy Communication Barriers N ever Primary Language Turkmen Problem List Condition Confirmation Course Effective Dates Status Health St atus Informant Abnormal weight loss Confirmed Active Anxiety Confirmed Active Generalized weakness Confirmed Active Afib Confirmed Active Benign essential HTN Confirmed Active Caregiver stress Confirmed Active Chronic vertigo Confirmed Active Constipation Confirmed Active 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 Scalp pain Confirmed Active Diplopia Confirmed Active Scalp lump Confirmed Active Eustachian tube dysfunction Confirmed Active Difficulty swallowing Confirmed Active Eustachian tube disorder Confirmed Active Changes in vision Confirmed Active GERD (gastroesophageal reflux disease) Confirmed Active Bad headache Confirmed Active Hypokalemia Confirmed Active Pontine hemorrhage Confirmed Active Migraine Confirmed Active Anxiety and depression Confirmed Active Anxious depression Confirmed Active Pre-op examination Confirmed Active Stented coronary artery Confirmed Active Stented coronary artery Confirmed Active Change in vision Confirmed Active Diagnosis Diagnosis Type Effective Dates Health Status Clinical Service Informant Afib Discharge Diagnosis 11/03/23 Difficulty swallowing Discharge Diagnosis 11/03/23 Abnormal weight loss Discharge Diagnosis 11/03/23 Benign essential HTN Discharge Diagnosis 11/03/23 Anxious depression Discharge Diagnosis 11/04/23 Non-Specified Hypokalemia Discharge Diagnosis 11/04/23 Non-Specified Procedures Procedure Date Related Diagnosis Body Site Status Eye examination 1 04/20/19 [facility] ed Nuclear cardiovascular stres s testing 2 01/07/[address] of head without contrast 3 11/10/[address] head w/o contrast 4 08/09/17 Co mpleted MRI of brain without contrast 5 07/23/17 Completed Esophagogastroduodenoscopy 6 07/16/17 Completed Upper GI endoscopy 7 07/16/17 Comp leted Acute cholecystitis Compl eted Chest X-ray 8 Completed Dissection tonsillectomy Completed Repair of inguinal hernia Completed 1[facility] NAIMA Gibson OD: OS: [facility] Impression: 1. There is no significant regadenoson induced perfusion abnormality detected to suggest the presence of ischemia. There is no significant resting perfusion abnormality detected to indicate the presence of prior myocardial infarction. The left ventricle is normal in size. The left ventricular ejection fraction is 58%. The overall probability of ischemia due to hemodynamically significant underlying coronary artery disease being present, based upon these combined findings, is low. Prognostically, this is a low risk study for acute ischemic events. 3[facility] Impression: 1. A small ill-defined area of hyperattenuation at the inferior cerebellar vermis adjacent to the roof of the fourth ventricle with mild regional volume loss, potentially representing mild dystrophiccalcification associated with prior remote insults. The diagnostic consieration also includes underlying partially calcified vasular abnormality. As clinically warranted, further evaulation wit contrast-enhanced MRI may be helpful 2. Otherwise, no acute intracranial findings 4IMPRESSION: No acute intracranial findings. 51. No acute intracranial findings. 2. The previously reported pontine hemorrhage is not visualized. There is no hydrocephalus. 3. No evidence of acute or subacute infarction. 4. No evidence of intracranial mass. 5. Equivocal small focus of hemosiderin deposition in the region of the superior colliculus. 6normal esophagus, stomach & duodenum 7[facility] Impression: 1. Normal esophagus 2. Normal stomach 3. Normal examined duodenum 4. No specimens collected 5. Resume previous diet. Continue present medications. Consider esophageal manometry study if symptoms persist 8IMPRESSION: No acute pulmonary abnormality. Vital Signs Most recent to oldest [Reference Range]: 1 Patient Weight 50.1 kg (11/04/23 1:31 PM) Heart Rate 54 bpm (11/04/23 1:31 PM) Respiratory Rate 16 br/min (11/04/23 1:31 PM) Blood Pressure 122/82mmHg (11/04/23 1:31 PM) Cuff Pulse Pressure 40 mmHg (11/04/23 1:31 PM) BP Location # 1 Right Arm (11/04/23 1:31 PM) Social History Social History Type Response Smoking Status Never smoked cigaret chela Sex Female FCM Outpt Note * MD Ramez, Betsy Brown: PERFORM Event Display: FCM Outpt Note Authored Date: Chief Complaint follow up, would like to discuss prozac History of Present Illness Here for recheck offollowing concerns : 1)Depression - she was hoping that she could go back on Prozac. She has lost her appetite, but is pushing herself to eat more. Her son in 08/08 of cancer. She thinks that she is handlingit well. Has her other son & grandson living next door to her. She had been on Prozac yearsbefore & did really well with it. It worked & she had no sideeffects from it. 2) Weight loss - this is doing better now, since she's been making herself eat better. 3) Swallowing problem - this happens very rarely any more. She knows that she has to swallow slowly & carefully.When she was a child, she had a "botched tonsillectomy" which left her with a pocket in the back of her throat. She knows that food can get stuck in this area, but if she uses liquids to wash the food down. 4) AFib - she never feels palpitations or chest pain.Sees cardiology regularly. Review of Systems Review of Systems- Constitutional: + fatigue, no changes in weight. HEENT: no vision changes, or sinus congestion. Respiratory: no cough, SOB, or wheezing. Cardiac: no chest pain, palpitations or pedal edema. GI: no abdominal pain, vomiting or change in bowel habits. : no dysuria. Neurologic: no headaches. Musculoskeletal: No joint pains. Physical Exam Vitals & Measurements HR:54(Monitored) RR:16 BP:122/82 SpO2:94% WT:50.1kg WT:50.100kg(Dosing) PHQ2 Data(Data Documented on:11/04/2023 13:31) Emotional health assessment NEGATIVE PE : Alert, in NAD. HEENT - PERRL. TM's - normal. Nares - clear. Oropharynx - normal. Neck - supple, without thyromegaly or lymphadenopathy. Lungs - clear, with good breath sounds bilaterally. Heart - RRR without murmur. No pedal edema. Abdomen - +BS, soft, NT without HSM or mass. Neuro - alert & oriented, speech & cognition normal. Skin - warm & dry. Psych - affect appropriate. Assessment/Plan 1.Anxious depression Status : chronic, worse. Data : hx reviewed. Goal : achieve & maintain remission. Plan : discussed options formeds. Restart Prozac 10mg daily, DEZ.Recheck on med in 2 months.Call sooner if she has problems with meds. 2.Abnormal weight loss STATUS: Chronic stable. DATA: weights reviewed. GOAL: avoid further weight loss, hopefully, regain weight. PLAN: Cont current weight monitoring, julia since she is not continuing to lose weight. 3.Afib STATUS : chronic, stable. DATA : hx & exam reviewed. GOAL : maintain euvolemia, stable cardiac rhythm. PLAN : reviewed recent labs to includeelectrolytes, all satisfactory, except slightly low potassium. HR is controlled. Not anti-coagulated, due to hx of hemorrhagic stroke. Continue cardiology follow up. 4.Difficulty swallowing STATUS: Chronic, somewhat improved. DATA: hx reviewed. GOAL: Maintain stability. PLAN: Cont current monitoring. 5.Benign essential HTN Status : chronic, well-controlled. Data : BP readings reviewed. Goal : maintain normal BP. Plan : continue current BP meds. 6.Hypokalemia STATUS: new dx, mild & asymptomatic. DATA: Labs reviewed. GOAL: Maintain stable electrolytes. PLAN: she is well aware of foods high in potassium, to try to maximize these in her diet. Return in 2 months for recheck on meds. 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 Caregiver stress Change in vision Changes in vision Chronic vertigo Constipation Difficulty swallowing Diplopia Eustachian tube disorder Eustachian tube dysfunction Generalized weakness GERD (gastroesophageal reflux disease) Hypokalemia Migraine Pontine hemorrhage Pre-op examination Scalp lump Scalp pain Stented coronary artery Stented coronary artery Historical Diplopia Intracranial bleed Procedure/Surgical History Eye examination| Service Date: 04/20/2019Nuclear cardiovascular stress testing| Service Date:01/07/2019CT of head without contrast| Service Date: 11/10/2018CT head w/o contrast| Service Date: 08/09/2017MRI of brain without contrast| Service Date: 07/23/2017Esophagogastroduodenoscopy| Service Date: 07/16/2017Upper GI endoscopy| Service Date: 07/16/2017Chest X-rayDissection tonsillectomyAcute cholecystitisRepair of inguinal hernia Medications amiodarone(amiodarone 200 mg oral tablet), See Instructions, 11 refills aspirin(aspirin 81 mg oral delayed release tablet), 81 mg= 1 tab, PO, Daily fexofenadine(Eda Hives 24 Hour 180 mg oral tablet) FLUoxetine(FLUoxetine 10 mg oral capsule), 10 mg= 1 cap, PO, Daily, 6 refills fluticasone nasal(fluticasone 50 mcg/inh nasal spray), 1 spray, each nostril, Daily, 11 refills galcanezumab(Emgality Prefilled Pen) hydroCHLOROthiazide(hydroCHLOROthiazide 25 mg oral tablet) lactulose(Constulose 10 g/15 mL oral syrup), See Instructions metoprolol(Toprol-XL 100 mg oral tablet, extended release), 100 mg= 1 tab, PO, qhs, 3 refills nitroglycerin(nitroglycerin 0.4 mg sublingual tablet), 0.4 mg= 1 tab, SL, q5min, PRN, 1 refills ondansetron(ondansetron 4 mg oral tablet), See Instructions ubrogepant(Ubrelvy 50 mg oral tablet), 50 mg= 1 tab, PO, ONCE, 1 refills valsartan(valsartan 320 mg oral tablet), See Instructions Allergies Statins (HMG-CoA reductase inhibitors)msucle weakness Zetiaweakness morphineunknown vancomycinflushed neck/face/high BP Social History Smoking Status Never smoked cigarettes Alcohol - Denies Alcohol Use Exercise Exercise type:Walking - Comments: does do stairs in her home, does all her own housework not walking well Tobacco Use:Never smoker Family History Alcoholism: Mother. Heart attack: Sister and MGF. Heart failure: Father. Lung cancer: Sister, Sister and Brother. Malignant tumor of lung: Sister and Brother. Obesity: Brother. Health Status Family Member(s) Immunizations Vaccine Date Status SARS-CoV-2 (COVID-19) mRNA BNT-162b2 vax 11/09/2020 Recorded Comments : 2021-09-25: Historical information-source unspecified SARS-CoV-2 (COVID-19) mRNA BNT-162b2 vax 10/19/2020 Recorded Comments : 2021-09-25: Historical information-source unspecified influenza virus vaccine, inactivated 08/02/2019 Given influenza virus vaccine, inactivated 08/24/2018 Recorded pneumococcal 13-valent vaccine 05/15/2015 Recorded Recommendations Health Maintenance Pending(in the next year) OverDue Adult Influenza Vaccine due02/13/23and every 1year Due Adult COVID-19 Vaccination due11/04/23Unknown Frequency Adult Social Determinants of Health Screening due11/04/23Unknown Frequency Adult Tdap/Td Vaccine due11/04/23Unknown Frequency Medicare Annual Wellness Visit due11/04/23and every 1year Osteoporosis Screening due11/04/23One-time only Pneumococcal Vaccine Older Adults due11/04/23One-time only Shingles Vaccine due11/04/23One-time only Satisfied(in the past 1 year) Satisfied Body Mass Index on06/08/23.Satisfied by MARCO Dao Meagan Electronic Signature on File Electronically Reviewed/Signed by: Betsy Myrick MD Author Signature Dt/Tm:11/04/2023 08:11 PM [facility] [address] [address] [facility] Patient Care team information Care Team Personnel Name: MD Ramez, Betsy Brown Position: Physician - Family Med Member Role: Primary Care Provider Address: Address: [address] [place] [address] [place] Care Team Related Persons Name: SAIGE PATEL Address: home [address] NAIM[place] BROWN [phone]
--- OUTSIDE RECORDS SUMMARY | 2024-01-14 22:24 | External Medical Summary | Summary of Care ---
Author Name Unknown Organization [facility] Address [address] [place] [address] Phone [phone] Care Team Providers Care Craft Manager Name Role Phone Betsy Myrick MD Primary Care Provider [phone] Encounter Details Date Type Department Care Team (Late st Contact Info) Description 10/20/2023 Orders Only PATIENT PORTAL DO NOT DELETE THIS DEPT USED BY NAIMA HAGAN [id number] Allergies Active Allergy Reactions Criticality Noted Date Comments Morphine Nausea/vomiting 03/30/2023 Vancomycin Rash 03/30/2023 documented as of this encounter (statuses as of 10/20/2023) Medications Medication Sig Dispensed Refills Start Date End Date Status Meloxicam 7.5 MG Tablet Take 7.5 mg by mouth daily. 0 Active Valsartan 320 MG Tablet Take 1 Tablet by mouth in the morning. 0 Active Aspirin 81 MG Oral Tablet Delayed Release Take 1 Tablet by mouth in the morning. 0 Active FLUoxetine (PROZAC) 20 MG Capsule Take 20 mg by mouth daily. 0 Active hydroCHLOROthiazide 25 MG Oral Tablet (Hydrodiuril) Take 1 Tablet by mouth in the morning. 0 Active Ondansetron HCl 4 MG Oral Tablet Take 1 Tablet by mouth every 8 hours as needed for Nausea. 0 Active Metoprolol Succinate ER 100 MG Oral Tablet Extended Release 24 Hour 1 Tablet. 0 06/03/2021 Active Amiodarone HCl 200 MG Oral Tablet (Cordarone) 0 01/07/2023 A ctive Ubrelvy 50 MG Oral Tablet (Ubrogepant) 50 mg. 0 11/07/2022 Activ e Emgality 120 MG/ML Subcutaneous Solution Auto-injector (Galcanezumab-[facility]) Inject 1 mL under the skin Every Month. 0 Active documented as of this encounter (statuses as of 10/20/2023) Active Problems Problem Noted Date Diagnosed Date Hyponatremia 03/29/2023 Other headache syndrome 03/29/2023 CAD (coronary artery disease) 03/29/2023 GERD (gastroesophageal reflux disease) Paroxysmal atrial fibrillation 05/25/2021 Other chest pain 05/25/2021 Hypokalemia 05/25/2021 Secondary hypertension 05/25/2021 documented as of this encounter (statuses as of 10/20/2023) Resolved Problems Problem Noted Date Diagnosed Date Resolved Date Hypertensive urgency 03/29/2023 023 documented as of this encounter (statuses as of 10/20/2023) Immunizations Name Administration Dates Next Due Seasonal Influenza, Split, IIV3, With Preserve, Inj 05/31/2008 documented as of this encounter Social History Tobacco Use Types Packs/Day Years Used Date Smoking Tobacco: Never Alcohol Use Standard Drinks/Week Comments No 0 (1 standard drink = 0.6 oz pur e alcohol) Sex and Gender Information Value Date Recorded Sex Assigned at Not on file Gender Identity Not on file Sexual Orientation Not on file Job Start Date Occupation Industry Not on file Not on file Not on file documented as of this encounter Functional Status Functional Status Response Date of Assess ment Are you deaf or do you have serious difficulty hearing? No 03/30/2023 Are you blind or do you have serious difficulty seeing, even when wearing glasses? Yes-diplopia/ triple vision 03/30/2023 Do you have serious difficul ty walking or climbing stairs? (5 years old or older) Yes 03/30/2023 Do you have difficulty dress ing or bathing? (5 years old or older) No 03/30/2023 Because of a physical, menta l, or emotional condition, do you have difficulty doing errands alone such as visiting a doctor s office or shopping? (15 years old or older) Yes-does not drive 03/30/2023 Cognitive Status Response Date of Assessm ent Because of a physical, menta l, or emotional condition, do you have serious difficulty concentrating, remembering, or making decisions? (5 years old or older) No-slight 03/30/2023 documented as of this encounter Plan of Treatment Health Maintenance Due Date Last Done Comments DXA Scan 1943 Depression Screening 1955 Albumin/Creatinine Ratio 1961 DTaP,Tdap,and Td Vaccines (1 - Tdap) 1962 Zoster Vaccines (1 of 2) 1993 Pneumococcal Vaccine: 65+ Years (2 of 2 - PPSV23 or PCV20) 05/15/2016 05/15/2015 COVID-19 Vaccine (3 - 24 season) 2023 11/09/2020, 10/19/2020 Influenza Vaccine (FLU shot) (#1) 2023 08/02/2019, 08/24/2018, 05/24/2015, Additional history exists GFR 08/20/2024 08/20/2023, 03/17, 03/29/2023, Additional history exists GARDASIL-HPV IMMUNIZATION SERIES Aged Out No longer eligible based on patient's age to complete this topic Hepatitis B Aged Out No longer eligi ble based on patient's age to complete this topic MENINGOCOCCAL (MENACTRA/MENVEO) Aged Out No longer eligible based on patient's age to complete this topic documented as of this encounter Medical Devices Implanted Type Area Senior Report Developer Device Identifier Shelf Expiration Date Model / Serial / Lot Mesh Marlex Large [id number] - [id number] Implanted:Qty: 1 on 11/11/2016 by Spencer Drake DO at OR [facility] Right: Coleen COBB BARD : DAVOL 07/14/2021 [id number] / / [id number] documented as of this encounter Advance Directives Latest Code Status on File Code Status Date Activated Date Inactivated Comments Full Code 03/30/2023 12:05 AM 03/30/2023 8:12 PM This order reflects the patients wishes and were consensually agreed upon. Question Answer Comments Discussion of Advance Directives occurred with: Patient Code Status History Code Status Date Activated Date Inactivated Comments Full Code 05/25/2021 9:36 PM 05/26/2021 6:34 PM This order reflects the patients wishes and were consensually agreed upon. Question Answer Comments Discussion of Advance Directives occurred with: Patient Does the patient have a Living Will? No Does the patient have Health Care Power of Flap Lining Binder? No Care Teams Craft Manager Relationship Specialty Start Date End Date Betsy Myrick MD [address] [facility] [place] [address] [place] [address] PCP - General Family Medicine 06/13/22 documented as of this encounter
--- OUTSIDE RECORDS SUMMARY | 2024-01-14 22:24 | External Medical Summary | Continuity of Care Document ---
Author Name Unknown Organization [facility] [address] [facility] Address [address] [place], [place] [id number] Care Team Providers Care Ethylbenzene Cracking Supervisor Name Role Phone Betsy Myrick Primary Care Physician [phone] [id number] Date(s): 10/15/23 - 10/15/23 [facility] [address], [address] [place] [address] [phone] Encounter Diagnosis Benign essential HTN(Discharge Diagnosis) - 10/15/23 CAD in [place] artery(Discharge Diagnosis) - 10/15/23 Afib(Discharge Diagnosis) - 10/15/23 Unspecified atrial fibrillation(Final) - Essential (primary) hypertension(Final) - Atherosclerotic heart disease of [place] coronary artery without angina pectoris (Final) - Discharge Disposition: Home or Self Care Attending Physician: DO James Jason D Allergies, Adverse Reactions, Alerts Substance Reaction Severity Status vancomycin flushed neck/face/high BP Ac tive morphine unknown Active Statins (HMG-CoA reductase inhibitors) msucle weakness Active Zetia weakness Active Assessment and Plan Extracted from: Title:Cardiology Office Visit Note Author:DO James Jason D Date:10/15/23 1.Afib 2.Benign essential HTN 3.CAD in [place] artery She is maintaining sinus rhythm with a combination of amiodarone and 100 mg of Toprol XL. Her EKG today reveals sinus rhythm with a right bundle branch block and a QTc of 473 ms. I did ask her if she had signs or symptoms of chronotropic incompetence. she denied this. If she were to have excessive bradycardia or I discussed with her if she felt like she is in second year or [place] when she goes to do activity we would reduce her Toprol dose from 100 to 50 mg. She needs a complete metabolic profile TSH and free T4 on amiodarone. Her blood pressures are very well-controlled. She is not on Anticoagulation due to previous hemorrhagic stroke. She continues to deal with issues of a headache and vertigo but they are dramatically improved with her seeing neurology at [facility]. She will see Albina, nurse practitioner, in 6 months. I will see her in a year. Immunizations Given and Recorded Vaccine Date Status [...] Note to Pharmacy: change in dose, Pharmacy: [facility] Start Date: 09/08/23 Status: Ordered aspirin 81 mg oral delayed release tablet Start: 09/30/17 14:05:00, 1 tab, PO, Daily Start Date: 09/30/17 Status: Ordered Constulose 10 g/15 mL oral syrup Start: 04/21/23 15:41:00 EDT, See Instructions, Disp# 400 mL, Refills: 6, TAKE 15 ML BY MOUTH DAILYAS NEEDED FOR CONSTIPATION, Pharmacy: [facility] Start Date: 04/21/23 Status: Ordered Emgality Prefilled Pen Start: 01/16/23 11:42:00 EDT Start Date: 01/16/23 Status: Ordered fluticasone 50 mcg/inh nasal spray Start: 01/10/22 12:34:00 EDT, 1 spray, each nostril, Daily, Disp# 1 each, Refills: 11, Pharmacy: [facility] Start Date: 01/10/22 Status: Ordered hydroCHLOROthiazide 25 mg oral tablet TAKE 1 TABLET BY MOUTH ONCE DAILY Start Date: 06/08/23 Status: Ordered nitroglycerin 0.4 mg sublingual tablet Start: 06/05/21 14:54:00 EDT, 1 tab, SL, q5min, Disp# 25 tab, Refills: 1, PRN: as needed for chest pain, Pharmacy: [id number] Start Date: 06/05/21 Status: Ordered ondansetron 4 mg oral tablet Start: 05/01/23 12:41:00 EDT, See Instructions, Disp# 20 tab, Refills: 1, TAKE 1 TABLET BY MOUTH EVERY 8 HOURS NEEDED FOR NAUSEA AND VOMITING, Pharmacy: [facility] Start Date: 05/01/23 Status: Ordered Toprol-XL 100 mg oral tablet, extended release Start: 06/12/23 9:39:00 EDT, 1 tab, PO, qhs, Disp# 90 tab, Refills: 3, Pharmacy: [id number] Start Date: 06/12/23 Status: Ordered Ubrelvy 50 mg oral tablet Start: 11/07/22 14:00:00 EDT, 1 tab, PO, ONCE, Disp# 10 tab, Refills: 1, take 1 tab by mouth at theonset of migraine symptoms may repeat dose in 2 hours if needed do not take more than 2 doses in 1 day and 4 doses in 1 week, Pharmacy: [facility] Start Date: 11/07/22 Status: Ordered valsartan 320 mg oral tablet Start: 02/05/23 11:37:00 EDT, See Instructions, Disp# 90 tab, Refills: 3, Take 1 tablet by mouth once daily, Pharmacy: [id number] Start Date: 02/05/23 Status: Ordered Problem List Condition Confirmation Course Effective Dates Status Health St atus Informant Abnormal weight loss Confirmed Active Anxiety Confirmed Active Generalized weakness Confirmed Active Afib Confirmed Active Benign essential HTN Confirmed Active Caregiver stress Confirmed Active Chronic vertigo Confirmed Active Constipation Confirmed Active CAD in [place] artery Confirmed Active Scalp pain Confirmed Active Diplopia Confirmed Active Scalp lump Confirmed Active Eustachian tube dysfunction Confirmed Active Difficulty swallowing Confirmed Active Eustachian tube disorder Confirmed Active Changes in vision Confirmed Active GERD (gastroesophageal reflux disease) Confirmed Active Bad headache Confirmed Active Intracranial bleed Confirmed Active Pontine hemorrhage Confirmed Active Migraine Confirmed Active Anxiety and depression Confirmed Active Pre-op examination Confirmed Active Stented coronary artery Confirmed Active Stented coronary artery Confirmed Active Change in vision Confirmed Active Diagnosis Diagnosis Type Effective Dates Health Status Cl inical Service Informant Afib Discharge Diagnosis 10/15/23 CAD in [place] artery Discharge Diagnosis 10/15/23 Benign essential HTN Discharge Diagnosis 10/15/23 Procedures Procedure Date Related Diagnosis Body Site Status Eye examination 1 04/20/19 Complet ed Nuclear cardiovascular stres s testing 2 [...] Completed [facility] NAIMA Gibson OD: OS: 2UP Impression: 1. There is no significant regadenoson [...] low risk study for acute ischemic events. 3UP Impression: 1. A small ill-defined area of [...] colliculus. 6normal esophagus, stomach & duodenum 7[facility] Impression: 1. Normal esophagus 2. Normal stomach 3. Normal examined duodenum 4. No specimens collected 5. Resume previous diet. Continue present medications. Consider esophageal manometry study if symptoms persist 8IMPRESSION: No acute pulmonary abnormality. Results Laboratory List Name Date Comprehensive Metabolic Panel (COMP META B PANEL) 10/15/23 T4, Free (T4, FREE) 10/15/23 Thyroid Stimulating Hormone (TSH) 4 Most recent to oldest [Reference Range]: 1 eGFR CKD-EPI [>60 mL/min/1.73 m2] 72 mL/ min/1.73 m2 1 (10/15/23 3:19 PM) Estimated CrCl 41.29 mL/min (10/15/23 3:49 PM) Anion Gap [5-14 mmol/L] 6 mmol/L (10/15/23 3:19 PM) Alb [3.5-5.0 g/dL] 4.4 g/dL (10/15/23 3:19 PM) Alk Phos [38-126 unit/L] 56 unit/L (10/15/23 3:19 PM) ALT [<35 unit/L] 26 unit/L (10/15/23 3:19 PM) AST [15-46 unit/L] 32 unit/L (10/15/23 3:19 PM) BUN [7-20 mg/dL] 16 mg/dL (10/15/23 3:19 PM) Ca [8.4-10.2 mg/dL] 9.8 mg/dL (10/15/23 3:19 PM) Cl- [96-107 mmol/L] 100 mmol/L (10/15/23 3:19 PM) HCO3 [22-30 mmol/L] 33 mmol/L *HI* (10/15/23 3:19 PM) Cret [0.60-1.00 mg/dL] 0.82 mg/dL (10/15/23 3:19 PM) Glu [74-106 mg/dL] 88 mg/dL (10/15/23 3:19 PM) K [3.5-5.1 mmol/L] 3.3 mmol/L *LOW* (10/15/23 3:19 PM) Na [137-145 mmol/L] 139 mmol/L (10/15/23 3:19 PM) Free T4 [0.70-1.48 ng/dL] 0.92 ng/dL 2 (10/15/23 3:19 PM) T Bili [0.2-1.3 mg/dL] 0.7 mg/dL (10/15/23 3:19 PM) Prot [6.3-8.2 g/dL] 7.9 g/dL (10/15/23 3:19 PM) TSH [0.47-4.68 uIU/mL] 2.40 uIU/mL 3 (10/15/23 3:19 PM) 1Result Comment: Testing Performed By: Dept of Pathology [facility], [address] [place] [address], [place] [address] 2Result Comment: Testing Performed By: Dept of Pathology [facility], [address] [place] [address], [place] [address] 3Result Comment: Testing Performed By: Dept of Pathology [facility], [address] [place] [address], [place] [address] Vital Signs Most recent to oldest [Reference Range]: 1 Patient Weight 50 kg (10/15/23 2:38 PM) Heart Rate 66 bpm (10/15/23 2:38 PM) Blood Pressure 124/68mmHg (10/15/23 2:38 PM) BP Location # 1 Left Arm (10/15/23 2:38 PM) Social History Social History Type Response Smoking Status Never smoked cigaret chela Sex Female Cardiology Outpatient Note * DO James Jason D: PERFORM Event Display: Cardiology Outpt Note Authored Date: Primary Care Provider MD Ramez, Betsy Brown Chief Complaint 6 month f/u History of Present Illness She denies any chest pain or chest pressure. She has no shortness of breath. She has had no palpitations or fluttering on amiodarone. From a cardiac standpoint she is doing well and her blood pressure is well-controlled. She has no lower extremity edema. She denies any presyncope or syncope no orthostatic symptoms. Unfortunately she got a large stress at home with her and and his dementia as well as his controlling attitude towards her. Review of Systems PAST MEDICAL HISTORY: 1. Coronary artery disease status post angioplasty and stenting of the RCA, 11/2007 and angioplasty and stenting of the LAD 12/2007. 2. Repeat cardiac catheterization 10/2011 with stenting of the mid RCA. 3. Repeat cardiac catheterization in 2014 with stenting of an unknown vessel all in [place]. 4. Paroxysmal atrial fibrillation, maintaining sinus rhythm. 5. Intracranial and intraventricular bleed 04/2017 secondary to an elevated INR and hypertensive urgency. 6. History of vision difficulty and gait instability status post CVA. 7.Cluster/Migraine PANDYA's 8. Hypertension. 9. Hyperlipidemia, intolerant of all statins and Zetia. 10. Echocardiogram 06/2022 with normal biventricular size and function, No evidence of pulmonary hypertension and moderate mitral regurgitation. 11. Negative angiography of the carotids and intracranial arterial system without an obvious source of stenosis or cause for her hemorrhage, 04/2017. 12. Implantable loop recorder secondary to syncope and paroxysmal atrial fibrillation. 13. Normal carotid ultrasound, 07/06/2021. ALLERGIES: MORPHINE AND VANCOMYCIN. INTOLERANCE TO STATINS AND ZETIA DUE TO SEVERE MYALGIAS. Physical Exam Vitals & Measurements HR:66(Monitored) BP:124/68 SpO2:95% WT:50.000kg(Dosing) WT:50kg PHYSICAL EXAMINATION: She is awake, alert, oriented x3.She looks so much better HEENT: 2+ carotid upstrokes, no evidence of carotid bruits. Jugular venous pressure appeared normal. Sclerae was anicteric. Hearing is normal. Lungs: Clear to auscultation bilaterally, alexis, rhonchi or wheezing. Heart: Regular rate and rhythm. There is a soft systolic ejectionmurmur at the right sternal border. Extremities: No clubbing, cyanosis or edema. Psychiatric: Affect appeared significantly better. Assessment/Plan 1.Afib 2.Benign essential HTN 3.CAD in [place] artery She is maintaining sinus rhythm with a combination of amiodarone and 100 mg of Toprol XL. Her EKGtoday reveals sinus rhythm with a right bundle branch block and a QTc of 473 ms. I did ask her if she had signs or symptoms of chronotropic incompetence. she denied this. If she were to have excessive bradycardia or I discussed with her if she felt like she is in second year [facility] when she goes to do activity we would reduce her Toprol dose from 100 to 50 mg. She needs a complete metabolic profile TSH and free T4 on amiodarone. Her blood pressures are very well-controlled. She is not on Anticoagulation due to previous hemorrhagic stroke. She continues to deal with issues of a headache and vertigo but they are dramatically improved withher seeing neurology at [facility]. She will see Albina, nurse practitioner, in 6 months. I will see her in a year. Problem List/Past Medical History Ongoing Abnormal weight loss Afib Anxiety Anxiety and depression Bad headache Benign essential HTN CAD in [place] artery Caregiver stress Change in vision Changes in vision Chronic vertigo Constipation Difficulty swallowing Diplopia Eustachian tube disorder Eustachian tube dysfunction Generalized weakness GERD (gastroesophageal reflux disease) Intracranial bleed Migraine Pontine hemorrhage Pre-op examination Scalp lump Scalp pain Stented coronary artery Stented coronary artery Historical Diplopia Procedure/Surgical History Eye examination (04/20/2019)Nuclear cardiovascular stress testing (01/07/2019)CT of head without contrast (11/10/2018)CT head w/o contrast (08/09/2017)MRI of brain without contrast (02/2017)Esophagogastroduodenoscopy (07/16/2017)Upper GI endoscopy (07/16/2017)Chest X-rayDissection tonsillectomyAcute cholecystitisRepair of inguinal hernia Medications amiodarone(amiodarone 200 mg oral tablet), See Instructions, 11 refills aspirin(aspirin 81 mg oral delayed release tablet), 81 mg= 1 tab, PO, Daily fexofenadine(Eda Hives 24 Hour 180 mg oral tablet) fluticasone nasal(fluticasone 50 mcg/inh nasal spray), 1 [...] Brother. Obesity: Brother. Health Status Family Member(s) Electronic Signature on File CC: Betsy Myrick MD [address] [place] [id number] Electronically Reviewed/Signed by: Alex James DO Author Signature Dt/Tm:10/15/2023 03:50 PM Managed Care Liaisonpolicy issue clerk [facility] [place] [address] JDF Patient Care team information Care Team Personnel Name: MD Ramez, Betsy Brown Position: Physician - Family Med Member Role: Primary Care Provider Address: Address: [address] [place] [address] [place] Care Team Related Persons Name: SAIGE PATEL Address: home [id number] [address] [place] [phone]
--- OUTSIDE RECORDS SUMMARY | 2024-01-14 22:25 | External Medical Summary ---
Author Name Unknown Address Unknown Organization K01:LABORATORY [facility] - [address] [facility] [address] Laboratory Report Ordering Provider Test Date Status RYLEY BURROWS 08/20/2023 14:04:38 Final Observation Date Value Abnormality Reference (Units ) Status TSH 08/20/2023 14:04:38 4.07 0.27-4.20 (uIU/mL) Final Performing Location [facility] - [address] [facility] [address]
--- OUTSIDE RECORDS SUMMARY | 2024-01-14 22:25 | External Medical Summary ---
Author Name Unknown Address Unknown Organization K01:[facility] - [address] [facility] [address] Laboratory Report Ordering Provider Test Date Status RYLEY BURROWS 08/20/2023 14:04:38 Final Observation Date Value Abnormality Reference (Units ) Status T4, Free 08/20/2023 14:04:38 1.1 0.9-1.7 (n g/dL) Final Performing Location [facility] - [address] [facility] [address]
--- OUTSIDE RECORDS SUMMARY | 2024-01-14 22:25 | External Medical Summary ---
Author Name Unknown Address Unknown Organization K01:LABORATORY [facility] - [address] [facility] [place] [address] Laboratory Report Ordering Provider Test Date Status MARIANN BURROWSTATYANA 08/20/2023 14:04:38 Final Observation Date Value Abnormality Reference (Units ) Status BUN 08/20/2023 14:04:38 11 6-20 (mg/dL) Final Creatinine 08/20/2023 14:04:38 0.9 0.5-1.0 (mg/dL) Final Glomerular filtration rate/1.73 sq M.predicted [Volume Rate/Area] in Serum, Plasma or Blood by Creatinine-based formula (CKD-EPI) 08/20/2023 14:04:38 63 >=60 (mL/min) Final eGFR is calculated based on the CKD-EPI 2020 equation SODIUM 08/20/2023 14:04:38 134 Below low normal 135 -146 (mmol/L) Final Potassium 08/20/2023 14:04:38 3.4 Below low normal 3.5 -5.1 (mmol/L) Final Cl 08/20/2023 14:04:38 92 Below low normal 98- 107 (mmol/L) Final CO2 08/20/2023 14:04:38 33 Above high normal 22 -32 (mmol/L) Final Anion gap 08/20/2023 14:04:38 9 7-15 (mmol /L) Final Glucose 08/20/2023 14:04:38 127 Above high normal 70 -120 (mg/dL) Final Albumin 08/20/2023 14:04:38 4.4 3.8-5.0 (g /dL) Final AST (Aspartate aminotransferase) 08/20/2023 14:04:38 29 10-35 (U/L) Fin al Alk Phos 08/20/2023 14:04:38 67 35-130 (U/ L) Final Bilirubin, Total 08/20/2023 14:04:38 0.4 <=1 .2 (mg/dL) Final Calcium 08/20/2023 14:04:38 10.2 8.4-10.2 ( mg/dL) Final Protein 08/20/2023 14:04:38 6.9 6.0-8.3 (g /dL) Final ALT (Alanine aminotransferase) 08/20/2023 14:04:38 27 10-35 (U/L) Doc bowen Performing Location LABORATORY [facility] - [address] [facility] [address]
--- OUTSIDE RECORDS SUMMARY | 2024-01-14 22:25 | External Medical Summary ---
Author Name Unknown Address Unknown Organization K01[facility] [address] [facility] [place] [address] Laboratory Report Ordering Provider Test Date Status RYLEY BURROWS 08/20/2023 14:04:38 Final Observation Date Value Abnormality Reference (Units ) Status Triglyceride 08/20/2023 14:04:38 158 <=174 ( mg/dL) Final Triglyceride Reference Range s (mg/dL):
<150 Acceptable
150-174 Borderline high
175-499 High
>=500 Very high Cholesterol 08/20/2023 14:04:38 257 Above high normal <200 (mg/dL) Final Total Cholesterol Reference Ranges (mg/dL):
<200 Desirable
200-239 Borderline high
>=240 High HDL 08/20/2023 14:04:38 64 >49 (mg/dL ) Final HDL Cholesterol Reference Ra nges (mg/dL):
>=60 High (Desirable)
<50 Low (Undesirable) For Females
<40 Low (Undesirable) For Males NON-HDL CHOLESTEROL 08/20/2023 14:04:38 193 Above high normal <=159 (mg/dL) Final Non-HDL Cholesterol Referenc e Range (mg/dL):
<100 Target level for high risk ASCVD patient
<130 Optimal for general population
130-159 Near optimal for general population
160-189 Borderline High
190-219 High
>=220 Very High LDL, (calculated) 08/20/2023 14:04:38 161 Above high n ormal <=129 (mg/dL) Final LDL Cholesterol Reference Ra nges (mg/dL):
<70 Target level for high risk ASCVD patient
<100 Optimal for general population
100-129 Near optimal for general population
130-159 Borderline high
160-189 High
>=190 Very high Performing Location [facility] [place] [address] [facility] [address]
--- OUTSIDE RECORDS SUMMARY | 2024-01-14 22:25 | External Medical Summary | Summary of Care ---
Author Name Unknown Organization [facility] Address [address] [place] [address] Phone [phone] Care Team Providers Care Offset Machine Operator Name Role Phone Betsy Myrick MD Primary Care Provider [phone] Reason for Visit * Reason Comments Outpatient Testing Encounter Details Date Type Department Care Team (Late st Contact Info) Description 08/20/2023 2:00 PM EST Laboratory Laboratory, [address] [place] [id number] [facility] [address] [place], [place] [id number] Atrial fibrillation, unspecified type (HCC); HTN, goal below 140/90; Coronary atherosclerosis; S/P primary angioplasty with coronary stent Allergies Active Allergy Reactions Criticality Noted Date Comments Morphine Nausea/vomiting 03/30/2023 Vancomycin Rash 03/30/2023 documented as of this encounter (statuses as of 08/20/2023) Medications Medication Sig Dispensed Refills Start Date [...] e Emgality 120 MG/ML Subcutaneous Solution Auto-injector (Galcanezumab-[facility]) Inject 1 mL under the skin Every Month. 0 Active documented as of this encounter (statuses as of 08/20/2023) Active Problems Problem Noted Date Diagnosed Date Hyponatremia 03/29/2023 Other headache syndrome 03/29/2023 CAD (coronary artery disease) 03/29/2023 GERD (gastroesophageal reflux disease) Paroxysmal atrial fibrillation 05/25/2021 Other chest pain 05/25/2021 Hypokalemia 05/25/2021 Secondary hypertension 05/25/2021 documented as of this encounter (statuses as of 08/20/2023) Resolved Problems Problem Noted Date Diagnosed Date Resolved Date Hypertensive urgency 03/29/2023 023 documented as of this encounter (statuses as of 08/20/2023) Immunizations Name Administration Dates Next Due Seasonal [...] as of this encounter Plan of Treatment Pending Results Name Type Priority Associated Diagnoses Date /Time T4, FREE Lab Routine Atrial fibrillation, unspecified type (HCC) HTN, goal below 140/90 Coronary atherosclerosis S/P primary angioplasty with coronary stent 08/20/2023 2:04 PM EST LIPID PANEL WITH DIRECT LDL IF TG IS HIGH Lab Routine Atrial fibrillation, unspecified type (HCC) HTN, goal below 140/90 Coronary atherosclerosis S/P primary angioplasty with coronary stent 08/20/2023 2:04 PM EST COMPREHENSIVE METABOLIC PANEL Lab Routine Atrial fibrillation, unspecified type (HCC) HTN, goal below 140/90 Coronary atherosclerosis S/P primary angioplasty with coronary stent 08/20/2023 2:04 PM EST TSH Lab Routine Atrial fibrillation, unspecified type (HCC) HTN, goal below 140/90 Coronary atherosclerosis S/P primary angioplasty with coronary stent 08/20/2023 2:04 PM EST Health Maintenance Due Date Last Done Comments DXA Scan 1943 Depression Screening 1955 Albumin/Creatinine Ratio 1961 DTaP,Tdap,and Td Vaccines (1 - Tdap) 1962 Zoster Vaccines (1 of 2) 1993 Pneumococcal Vaccine: 65+ Years (2 - PPSV23 or PCV20) 05/15/2016 05/15/2015 COVID-19 Vaccine (3 - 2022- season) 2023 11/09/2020, 10/19/2020 Influenza Vaccine (FLU shot) (#1) 2023 08/02/2019, 08/24/2018, 05/24/2015, Additional history exists GFR 03/30/2024 03/30/2023, 03/17, 02/10/2023, Additional history exists GARDASIL-HPV IMMUNIZATION SERIES Aged Out No longer eligible based on patient's age to complete this topic Hepatitis B Aged Out No longer eligi ble based on patient's age to complete this topic MENINGOCOCCAL (MENACTRA/MENVEO) Aged Out No longer eligible based on patient's age to complete this topic documented as of this encounter Medical Devices Implanted Type Area Biazzi Nitrator Operator Device Identifier Shelf Expiration Date Model / Serial / Lot Mesh Marlex Large [id number] - [id number] Implanted:Qty: 1 on 11/11/2016 by Spencer Drake DO at OR [facility] Right: Groin CR BARD : DAVOL 07/14/2021 [id number] / / [id number] documented as of this encounter Visit Diagnoses Diagnosis Atrial fibrillation, unspecified type (HCC) HTN, goal below 140/90 Unspecified essential hypertension Coronary atherosclerosis Coronary atherosclerosis of unspecified type of vessel, platinum or graft S/P primary angioplasty with coronary stent Postsurgical percutaneous transluminal coronary angioplasty status documented in this encounter Advance Directives Latest Code Status [...] the patient have Health Care Power of Side Splitter? No Care Teams Offset Machine Operator Relationship Specialty Start Date End Date Betsy Myrick MD [facility] [address] [place] [address] PCP - General Family Medicine 06/13/22 documented as of this encounter
[2024-01-15] MEDS: IBUPROFEN 600 MG TAB PO STA (00:13)
[2024-01-15 07:40] LABS: BUN Creatinine Ratio 18.8 (10-20); Calcium 8.9 mg/dl (8.6-10.3); Creatinine Clr Calc Pharmacy 42.3 ml/min; Est GFR (African American) 80.7 ml/min; Est GFR (Non-African American) 69.6 ml/min; Magnesium 1.9 mg/dl (1.7-2.4); Potassium 3.6 mmol/L (3.5-5.1)
--- NOTE | 2024-01-15 07:58 | Hospitalist Progress Note ---
Date of Service January 15, 2024 Assessment & Plan (1) NSTEMI (non-ST elevated myocardial infarction): Plan: Sent to ER per PCP office due to chest discomfort morning 01/11 and HTN w/ possible new EKG changes (although RBBB does not appear to be new). Also didn't take her nitro at home due to thinking it was . 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 Last stent per patient ~2013 HTN emergency w/ BP to 243/105 on admission. Troponin elevation 2nd to demand ischemia from HTN emergency/suspected unstable angina--> NSTEMI Trop 20--> 24.6--> 47.5 --> 35.5, suspected demand ischemia/NSTEMI Nitro PO x 1 SL w/ improvement but recurrence and nitropaste q6h jamee ordered w/ improvement as well as improvement/stable BP (presently 166/66) Cardiology consulted, initially planned for cath 01/13 but reschedule for 01/14 ECHO w/ preserved LV systolic function, EF 55-60%. no segmental wma. Normal RV size and function. Mild MR/TR, trace AI 01/14 NPO for cath today NS +20meq @60cc/hr while NPO, 1gm IV magnesium s/p cardiac cath with Dr Camejo this afternoon, report not yet in system but patient w/ card in room, stent to OM1 Was given ASA/brillinta with procedure, messaged Dr Camejo to see if wanting to continue DAPT vs switching to Plavix Dc'd further nitropaste, monitor for any recurrence of CP Telemetry monitoring Monitor lab/exam in AM Given unable to have all air from TR band removed until 7pm/too dark for will plan to dc in AM if no issues overnight (2) Hypertension: Plan: HTN emergency w/ BP to 243/105 on admission. Troponin elevation 2nd to demand ischemia from HTN emergency/suspected unstable angina Given hydralazine, nitro SL for CP as above and nitropaste ordered Continues on home metoprolol succinate 50mg HS, valsartan 320mg daily Home HCTZ on hold due to hyponatremia as above, consider resuming in AM if needed/possibly lower dose but suspect better benefit from alternative agent in elderly female/no hx DM Nitropaste to be discontinued as above, BP presently stable 166/66 without CP Hydralazine available prn Continued to monitor (3) Chest pain: Plan: As above, s/p cardiac cath and stent to OM1, further recs per cards once report received/responds to message (4) Elevated troponin: Plan: See above, s/p cath as outlined above (5) Hypokalemia: Plan: suspect 2nd to HCTZ use which has been on hold PO replacement ordered, 3.6 on AM labs and in gentle IVF while NPO this morning as above Mag stable, 1gm ordered to keep closer to 2 given her hx paroxysmal afib Monitor labs on repeat (6) Hyponatremia: Plan: suspected 2nd to HCTZ as above which remains on hold. Of note, patient has also recently been started on prozac for depression which can contribute TSH wnl. Serum osm 268 IVF ordered w/ NSS and Na improved to 131 and additional IVF as above and will monitor COnsideration to NOT resume HCTZ at dc as above (7) Anxiety: Plan: reason for visit to PCP for f/u on recent prozac rx, 2nd to increased stress with her at home/lot to care for. Agree, while in room does seem to very regimented and wanting things done "now" as reported by patient day prior in ER. 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 TSH wnl Keep K/mag replete continue monitoring on telemetry Plan continued inpatient stay, hopeful dc in AM 01/15 per discussion with patient (and at bedside) Admission and Anticipated Discharge Date Admission Date: January 13, 2024 Supervising Physician Co-Signing Physician Notes The patient was not seen by me. The chart was reviewed. Case discussed with NAIMA Araiza. Agree with assessment and plan Subjective Evaluated this afternoon following cath, in room. Stent to OM1, card in purse but official report not yet in system. Feeling well, no further chest pain reported. Nitropaste discontinued. Ordered diet. Inquiring about possible dc today as doesn't want to have her home but further discussion not able to remove air from TR band until 3pm and won't be completed until 7pm at [facility] and he is unsafe to drive in the dark over the [facility]. Sympathized with patient as was to have cath yesterday and this morning was bumped back one due to emergency and delaying dc due to unsafe to return home but also discussed should monitor for any symptoms and also needing to discuss with Dr Camejo about any medication changes. Discussed once confirmed w/ cardiology will plan to send meds tonight and plan for AM discharge early as possible. Patient/ agreeable to plan and he is going to go home. Questions/concerns addressed at this time. Physical Exam Physical Exam: General: 78 yo female sitting up in bed post-cath, at bedside, NAD HEENT; head atraumatic, mmm, trachea midline Resp: even/unlabored, no w/c/r/, on room air CV: RRR,faint systolic murmur, no r/g, no pitting edema/calf tenderness GI: +BS, soft/NT MSK/Neuro: nonfocal , answering questions appropriately, not confused, following commands Psych: AOx3, cooperative with exam notable frustration by however support provided Results & Data Results & Data Vital Signs (Past 12 Hours) Vital Signs Temp Pulse Pulse Resp BP Pulse Ox O2 Del Method 01/15/24 03:05 36.6 C 57 L 18 156/66 H 94 Room Air 01/14/24 22:50 53 L 01/14/24 22:38 36.9 C 57 L 18 132/64 94 Room Air Laboratory Results 01/15/24 01/14/24 01/14/24 Range/Units 05:32 12:52 07:58 WBC 8.04 (4.8-10.8) K/ul RBC 4.21 (4.20-5.40) M/uL Hgb 13.1 (12.0-16.0) g/dl Hct 36.9 L (37.0-47.0) % MCV 87.6 (80.0-100.0) fL MCH 31.1 (25.0-34.0) pg MCHC 35.5 (32.0-36.0) g/dL RDW Std Deviation 37.6 (36.4-46.3) fL RDW Coeff of Viki 11.7 (11.5-14.5) % Plt Count 334 (130-400) K/uL MPV 9.3 L (9.4-12.4) fL Sodium 131 L 130 L (136-145) mmol/L Potassium 3.6 3.6 (3.5-5.1) mmol/L Chloride 95 L 93 L (98-107) mmol/L Carbon Dioxide 30 33 H (21-32) mmol/L Anion Gap 6 4 (3-11) BUN 15 10 (6-23) mg/dl Creatinine 0.80 0.65 (0.6-1.2) mg/dl Est Cr Clr Drug Dosing 42.3 52.1 ml/min Est GFR ( Amer) 80.7 97.2 ml/min Est GFR (Non-Af Amer) 69.6 83.9 ml/min BUN/Creatinine Ratio 18.8 15.4 (10-20) Glucose 64 L 83 (70-99(Fasting)) mg/dl Osmolality 268 L (280-300) mOsm/kg Calcium 8.9 8.7 (8.6-10.3) mg/dl Magnesium 1.9 2.1 (1.7-2.4) mg/dl Total Bilirubin 0.7 (0.2-1.0) mg/dl AST 22 (13-39) U/L ALT 16 (7-52) U/L Alkaline Phosphatase 41 (34-104) U/L Troponin I High Sens 35.5 H D 47.3 H D (0-14) pg/ml Total Protein 6.3 (6.0-8.3) gm/dl Albumin 3.7 (3.4-5.0) gm/dl Globulin 2.6 (2.5-4.0) gm/dl Albumin/Globulin Ratio 1.4 (0.9-2) TSH 3.943 (0.300-4.500) uIu/ml PG Care Time/CCT Total # of Minutes Spent Total Time Spent with Patient: Total time spent is greater than 50% in coordination of care (as documented) at patient's floor/unit and/or counseling patient: Coding Level of Care Code 93884 SUB INP/OBS CARE 50MIN Diagnoses NSTEMI (non-ST elevated myocardial infarction) I21.4 Hypertension I10 Chest pain R07.9 Elevated troponin R79.89 Hypokalemia E87.6 Hyponatremia E87.1 Anxiety F41.9 Afib I48.91
[2024-01-15] MEDS ORDERED: SODIUM CHLORIDE 0.9% 1,000 ML IV SCH (08:00)
[2024-01-15] MEDS ORDERED: POTASSIUM CHLORIDE 20 MEQ in SODIUM CHLORIDE 0.9% 1,000 ML IV SCH (08:00)
--- NOTE | 2024-01-15 08:33 | Electrocardiogram Report ---
Test Reason : Blood Pressure : / mmHG Vent. Rate : 052 BPM Atrial Rate : 052 BPM P-R Int : 202 ms QRS Dur : 146 ms QT Int : 540 ms P-R-T Axes : 056 -04 020 degrees QTc Int : 502 ms Sinus bradycardia Right bundle branch block Minimal voltage criteria for LVH, may be normal variant ( R in aVL ) Abnormal ECG When compared with ECG of 13-JAN-2024 17:45, No significant change was found Confirmed by Andrés Loco ([id number]) on 01/15/2024 8:32:55 AM Referred By: Betsy Myrick Confirmed By:Andrés Loco
--- NOTE | 2024-01-15 10:21 | Pre Anesthesia Assessment ---
Date of Service January 15, 2024 Pre Sedation Assessment Vital Signs Temp Pulse Pulse Resp BP BP Pulse Ox 01/15/24 08:39 57 L 16 180/65 H 92 01/15/24 08:00 37.0 C 55 L 18 160/57 H 94 01/15/24 03:05 36.6 C 57 L 18 156/66 H 94 01/14/24 22:50 53 L 01/14/24 22:38 36.9 C 57 L 18 132/64 94 01/14/24 19:31 36.8 C 54 L 18 132/67 94 01/14/24 16:50 157/70 H 01/14/24 16:38 18 191/72 H 92 01/14/24 15:59 54 L 01/14/24 15:59 36.6 C 54 L 176/72 H 96 01/14/24 14:00 166/72 H 01/14/24 14:00 53 L 18 99 01/14/24 13:30 54 L 16 100 01/14/24 13:07 86 L 01/14/24 13:00 52 L 15 86 L 01/14/24 12:30 58 L 24 98 01/14/24 12:00 62 17 97 01/14/24 12:00 181/87 H 01/14/24 11:30 53 L 19 92 01/14/24 11:00 62 16 98 01/14/24 10:30 51 L 19 93 O2 Del Method 01/15/24 08:39 Room Air 01/15/24 08:00 Room Air 01/15/24 03:05 Room Air 01/14/24 22:50 01/14/24 22:38 Room Air 01/14/24 19:31 Room Air 01/14/24 16:50 01/14/24 16:38 Room Air 01/14/24 15:59 01/14/24 15:59 Room Air 01/14/24 14:00 01/14/24 14:00 01/14/24 13:30 01/14/24 13:07 Room Air 01/14/24 13:00 01/14/24 12:30 01/14/24 12:00 01/14/24 12:00 01/14/24 11:30 01/14/24 11:00 01/14/24 10:30 Cardiovascular RRR, no murmur, no edema Respiratory normal respiratory effort, lungs clear to auscultation Pre-Sedation Airway Assessment Smoking Status: Never smoker Hx Sleep Apnea: No Short, Thick Neck: No Thyromental Distance: < 3.5 Finger Breadths Oral Cavity: + WNL Mallampati Class: II ASA: ASA3 NPO Status Date of Last Intake of Fluids: 01/14/24 Time of Last Intake of Fluids: 23:00 Date of Last Intake of Solid Food: 01/14/24 Time of Last Intake of Solid Foods: 19:00 Notes The planned sedation has been discussed with the patient. Informed Consent was obtained. I have identified the patient, determined the appropriateness of sedation and have assessed the patient immediately prior to the procedure. All medicine(s) and interventions are by my order.
[2024-01-15] MEDS: ASPIRIN 81 MG CHEW ONE (10:29)
[2024-01-15] MEDS: HEPARIN (PORCINE) 1000 UNIT/ML 10 ML (CATH LAB USE ONLY) ONE ×2 (12:50→13:57)
[2024-01-15] MEDS: fentaNYL citrate PF 100 MCG/2 ML VIAL ONE (12:51)
[2024-01-15] MEDS: MIDAZOLAM HCL 1 MG/ML 2ML VIAL ONE ×2 (12:51→13:57)
[2024-01-15] MEDS: OPTIRAY 350 ONE (12:51)
[2024-01-15] MEDS: niCARdipine HCL INJ 2.5 MG/ML 10 ML AMP ONE (12:59)
[2024-01-15] MEDS: TICAGRELOR 90 MG TAB ONE (13:00)
[2024-01-15] MEDS: NITROGLYCERIN/D5W 100MCG/ML 20ML SYR ONE ×2 (13:00→13:57)
--- NOTE | 2024-01-15 13:04 | Post Anesthesia Assessment ---
Date of Service January 15, 2024 Post Sedation Assessment Vital Signs Temp Pulse Pulse Resp BP BP Pulse Ox 01/15/24 08:39 57 L 16 180/65 H 92 01/15/24 08:00 37.0 C 55 L 18 160/57 H 94 01/15/24 03:05 36.6 C 57 L 18 156/66 H 94 01/14/24 22:50 53 L 01/14/24 22:38 36.9 C 57 L 18 132/64 94 01/14/24 19:31 36.8 C 54 L 18 132/67 94 01/14/24 16:50 157/70 H 01/14/24 16:38 18 191/72 H 92 01/14/24 15:59 54 L 01/14/24 15:59 36.6 C 54 L 176/72 H 96 01/14/24 14:00 166/72 H 01/14/24 14:00 53 L 18 99 01/14/24 13:30 54 L 16 100 01/14/24 13:07 86 L O2 Del Method 01/15/24 08:39 Room Air 01/15/24 08:00 Room Air 01/15/24 03:05 Room Air 01/14/24 22:50 01/14/24 22:38 Room Air 01/14/24 19:31 Room Air 01/14/24 16:50 01/14/24 16:38 Room Air 01/14/24 15:59 01/14/24 15:59 Room Air 01/14/24 14:00 01/14/24 14:00 01/14/24 13:30 01/14/24 13:07 Room Air Recovery Score Activity: Moves 4 extremities Respiration: Deep Breath/Cough Circulation: +/-20% PreAnes Value Consciousness: Fully Awake Oxygen Saturation: > 92% On Room Air Discharge Sedation Level of Care: Fast Track Phase II Post Sedation Plan On clinical assessment, the patient appears to have tolerated the sedation without complications. Patient is recovering as anticipated. Patient will continue to be monitored by nursing and may be discharged when sedation discharge criteria are met per below protocol. Upon Completions of procedure up to 15 minutes continue every 5 minute vital signs and the P.A.R. score; then discharge to a Phase I or Fast Track to Phase II per the following guidelines: * Discharge Patient to appropriate Phase II area if PAR is 8 or greater or retur n to pre- procedure baseline. The post - procedure orders will be as directed. * If PAR score is less than 8 or not return to pre-procedure baseline then patient will follow Phase I monitoring till PAR is reached for Phase II. The Phase I may be done in procedure room or may call to secure a Phase I area. * If naloxone or flumazenil are used for reversal, hold in Phase I for continued monitoring from when last reversal dose was given for a minimum of 60 minutes or longer pending the nurse and/or physician discretion of patient condition before discharge to Phase II. Please call the Sedation Physician to re-evaluate and complete post-note for discharge to Phase II area. Do NOT discharge from procedure sedation or Phase 1 until post- sedation evaluation note is complete by procedure /sedation MD Sedation Discharge Instructions to be given to the patient at discharge to home. [facility] Procedure Codes (Charges) Indication for Procedure Indication for procedure: NSTEMI HX OF CAD AND STENTS Sedation/Anesthesia Procedure 1: Sedation/Anesthesia: 74380 Mod Sedation by the same physician;Init15 Min Child Age 5 & Up (INITIAL 15 MIN, START 12:14) Total Sedation Time (minutes): 35 Procedure 2: Sedation/Anesthesia: 77395 Mod Sedation by the same physician; Ea [id number] Minutes (ADDITIONAL 20 MIN, END 1249) Total Sedation Time (minutes): 35
[2024-01-15] MEDS ORDERED: Nursing to Pharmacy Communication SCH (13:30)
[2024-01-15] MEDS: NSS + 20MEQ KCL 20 MEQ/1,000 ML BAG IV SCH (13:30)
[2024-01-15] MEDS: MAGNESIUM SULFATE / D5W 1 GM/100 ML BAG IV ONE ×2 (13:53→14:06)
[2024-01-15] MEDS ORDERED: LORazepam 0.5 MG TAB PO PRN (16:07)
--- NOTE | 2024-01-15 17:00 | Cardiac Catheterization ---
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 Maximum 95% at distal end.) R PDA (% Stenosis): Normal Diagnostic Physicians Name: Gael Camejo MD, PhD Closure Device Percutaneous Entry Location: Radial Closure Device: Radial Band Recommendations: Medical Therapy and/or Counseling and PCI without planned CABG PCI Indication: PCI for high risk Non-CITLALLI Lesion Segment Name: Ostial through proximal OM1 Culprit Artery: Yes Stenosis Prior to Rx (%): 95 Pre-Procedure SHAUN Flow: 3 Previously Treated Lesion: No Lesion Complexity: Non-High/Non-C Lesion Length (mm): 8 mm Thrombus Present: No Bifurcation Lesion: No Guidewire Across Lesion: Yes Intraprocedure Events Significant Disection: No Perforation: No Cardiac Cath Procedure Full Procedure Date January 15, 2024 Pre-Procedure Diagnosis Pre-Procedure Diagnosis: Non STEMI AUC Score AUC Score: 07 Post-Procedure Diagnosis Post-Procedure Diagnosis: Severe CAD and Successful PCI Procedure(s) Performed Procedure(s) Performed: Coronary Angiography and Drug Eluting Stent Tanker Driver Gael Camejo MD, PhD Estimated Blood Loss Estimated Blood Loss: 5 cc Medication(s) Medication(s): Fentanyl, Heparin, Lidocaine 1%, Nicardipine, Nitroglycerin and Versed Summary of Findings Brief description: Patient was brought to the cardiac catheterization suite where she was shaved and prepped in a sterile fashion. Sedated using IV Versed and fentanyl. Soft tissues of the right wrist were anesthetized using 2 mL of 1% Xylocaine. The right radial artery was accessed with modified Seldinger technique and a 6 [place] radial artery glide sheath was placed. Patient was provided anticoagulation with IV heparin and antispasmodics including nicardipine and nitroglycerin. All catheters were advanced and exchanged over a 0.035 J-tip wire. Left and right coronary angiography were performed in orthogonal views using a 5 [place] 4 diagnostic catheter. Diagnostic catheter was removed and we prepared for PCI. ACT was checked and additional heparin was provided as needed to maintain therapeutic anticoagulation. 6 [place] EBU 3.0 guide catheter was used to engage the left main coronary. BMW reversal guidewire was advanced through the guide catheter and under fluoroscopic guidance was positioned distally in the obtuse marginal branch. Lesion was predilated with a 2.5 x 8 mm trek balloon with 3 inflations up to 8 logan. There was significant "watermelon seeding". Lesion was then predilated with a 2.5 x 12 mm trek balloon and there was no watermelon seeding. 8 logan was used. Balloon was removed. PCI with implantation of a 2.5 x 12 mm Carlos drug-eluting stent extending from the ostium of the OM and overlapped with its distal edge within a proximal portion of a previously (remotely) placed stent. Deployed at 16 logan. Balloon was removed and angiography was performed. Guidewire and guide catheter were then removed. Patient was provided oral Brilinta 180 mg x 1. Radial artery sheath was removed. Hemostasis was obtained using the TR band. Patient remained hemodynamically stable and asymptomatic. She was returned to the recovery area. This ended the case. Coronary angiography findings: [id number] vessel bifurcating into LAD and circumflex. There is an ostial 30 to 40% stenosis and mild calcification. [id number] and transapical. Provides a large septal branch and at the same level a medium caliber branching first diagonal. Proximal LAD has up to 40% narrowing. The diagonal has ostial 50% narrowing and then proximal 60 to 70% narrowing before the vessel branches number of times. Diameter of the vessel appears to be less than 2 mm. The mid LAD has a previously placed stent with in-stent restenosis of 40 to 50%. Distal LAD without significant disease. LCx-medium to large caliber and probably nondominant. Proximal segment with 20% stenosis. Provides a large caliber branching OM1. This has an ostial to proximal 95% stenosis and then there is a previously placed stent without significant in-stent restenosis. After this, the OM branches several times and there is mild luminal irregularities. Mid AV groove circumflex is medium caliber. Right after the ostium of the OM there appears to be 30% stenosis and the vessel has no disease. It provides a medium caliber OM 2 which has no disease. The distal AV groove vessel tapers further and has no disease before it terminates. RCA-medium caliber and probably dominant. Proximal vessel with diffuse 50 to 70% stenosis. Previously placed stent extending from proximal through mid vessel has diffuse up to 99% or more in-stent restenosis. SHAUN I flow beyond this. No evidence of thrombus. Distal RCA does not appear to have significant disease and transitions to the PDA. No evident disease in this segment. PCI of OM 1-95% stenosis is reduced to 0% stenosis post PCI SHAUN-3 flow post PCI No evidence of dissection or perforation post PCI Summary: 1. Patient has in-stent restenosis in the previously placed LAD and RCA stents. The previously placed OM stent is patent. 2. Severe stenosis of the OM1 in the unstented segment. This is the best target for PCI. Diagonal 1 vessel is too small for PCI. The RCA in-stent restenosis appears to have low likelihood for success given chronic and severe stenosis. 3. Successful PCI of the OM1. Implantation of a drug-eluting stent overlapped with the previously placed stent. 4. Dual antiplatelet therapy with aspirin 81 mg daily and Brilinta 90 mg p.o. twice daily. 5. Optimize medical therapy for secondary prevention of coronary disease as tolerated. This should include aspirin, beta-kayla, ARB, and high intensity statin therapy or PCSK9 inhibitor if tolerated. Hemodynamics Rest Ao:: 149/58 mmHg Final Ao: 177/56 mm yonis LV: Not performed Recommendations Recommendations: Medical Therapy and/or Counseling and PCI without planned CABG Radiation Exposure (mGy) 792 mGy, fluoroscopy time 9.9 minutes Contrast (mls) 60 Anesthesia Versed 1 mg, fentanyl 25 mcg IV. 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 Any exceptions are noted below. [employer] Card Cath Procedure Codes Cardiac Catheterization Procedure 1: Cardiovascular Cath Procedures: 32756 Coronaries Moderate Sedation Procedure 1: Sedation/Anesthesia: 74325 Mod Sedation by the same physician;Init15 Min Child Age 5 & Up (Initial 15 min, start 1214) Procedure 2: Sedation/Anesthesia: 02555 Mod Sedation by the same physician; Ea [id number] Minutes (Additional 20 min, End 1249) Stenting Procedure 1: Cardiovascular Stent Procedures: 54370 Perc transluminal revascularization of acute sub/total occl, aMI PG Care Time/CCT Total # of Minutes Spent Total Time Spent with Patient: Total time spent is greater than 50% in coordination of care (as documented) at patient's floor/unit and/or counseling patient:
[2024-01-15 18:04] LABS: Appearance Urine Clear (Clear); Bacteria Urine Automated None Seen (None Seen); Bilirubin Urine Negative (Negative); Blood Urine 1+ (Negative); Cast Urine Automated 0-2 /lpf (0-2); Color Urine Yellow; Epithelial Cell Urine Auto 0-2 /hpf (0-2); Glucose Urine UA Negative (Negative); Ketones Urine 2+ (Negative); Leukocyte Esterase Urine Negative (Negative); Nitrite Urine Negative (Negative); Protein Urine Negative (Negative); Specific Gravity Urine > 1.045 (1.000-1.030); Urobilinogen Urine Negative (Negative); WBC Urine Automated 0-5 /hpf (0-5); pH Urine 5.5 (4.5-7.5)
[2024-01-15 19:31] VITALS: RESP 18
[2024-01-15] MEDS: TICAGRELOR 90 MG TAB PO SCH (21:37)
[2024-01-15 22:35] VITALS: O2SAT 94
[2024-01-16 06:46] LABS: BUN Creatinine Ratio 15.9 (10-20); Calcium 8.7 mg/dl (8.6-10.3); Chol HDL Ratio 4.4 (0-5); Creatinine Clr Calc Pharmacy 49.1 ml/min; Est GFR (African American) 95.3 ml/min; Est GFR (Non-African American) 82.2 ml/min; Potassium 3.4 mmol/L (3.5-5.1)
--- NOTE | 2024-01-16 07:59 | Hospitalist Progress Note ---
Date of Service January 16, 2024 Assessment & Plan (1) NSTEMI (non-ST elevated myocardial infarction): Plan: Sent to ER per PCP office due to chest discomfort morning 01/11 and HTN w/ possible new EKG changes (although RBBB does not appear to be new). Also didn't take her nitro at home due to thinking it was . 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 Last stent per patient ~2013 HTN emergency w/ BP to 243/105 on admission. Troponin elevation 2nd to demand ischemia from HTN emergency/suspected unstable angina--> NSTEMI Trop 20--> 24.6--> 47.5 --> 35.5, suspected demand ischemia/NSTEMI Nitro PO x 1 SL w/ improvement but recurrence and nitropaste q6h jamee ordered w/ improvement as well as improvement/stable BP (presently 166/66) Cardiology consulted, initially planned for cath 01/13 but reschedule for 01/14 ECHO w/ preserved LV systolic function, EF 55-60%. no segmental wma. Normal RV size and function. Mild MR/TR, trace AI 01/14 NPO for cath today NS +20meq @60cc/hr while NPO, 1gm IV magnesium s/p cardiac cath with Dr Camejo this afternoon, report not yet in system but patient w/ card in room, stent to OM1 Was given ASA/brillinta with procedure, messaged Dr Camejo to see if wanting to continue DAPT vs switching to Plavix Dc'd further nitropaste, monitor for any recurrence of CP Telemetry monitoring Monitor lab/exam in AM Given unable to have all air from TR band removed until 7pm/too dark for will plan to dc in AM if no issues overnight 01/15 s/p VIRGIL to OM1 on 01/[address] Camejo. TO be on aspirin, Brilinta BID, statin/PSCK9 (prior intolerance), JOSE ANTONIO/ARB, BB -- Lipid panel pending Hydralazine caused dizziness in the past, able to tolerate amlodipine. Of note has NOT gotten her BB due to deng to 50s but likely should have hold parameter reduced to hold unless HR <50 prior to adding additional BP agent at this time (2) Hypertension: Plan: HTN emergency w/ BP to 243/105 on admission. Troponin elevation 2nd to demand ischemia from HTN emergency/suspected unstable angina Given hydralazine, nitro SL for CP as above and nitropaste ordered Continues on home metoprolol succinate 50mg HS, valsartan 320mg daily Home HCTZ on hold due to hyponatremia as above, consider resuming in AM if needed/possibly lower dose but suspect better benefit from alternative agent in elderly female/no hx DM Nitropaste to be discontinued as above, BP presently stable 166/66 without CP Hydralazine available prn Continued to monitor (3) Chest pain: Plan: As above, s/p cardiac cath and stent to OM1, further recs per cards once report received/responds to message (4) Elevated troponin: Plan: See above, s/p cath as outlined above (5) Hypokalemia: Plan: suspect 2nd to HCTZ use which has been on hold PO replacement ordered, 3.6 on AM labs and in gentle IVF while NPO this morning as above Mag stable, 1gm ordered to keep closer to 2 given her hx paroxysmal afib Monitor labs on repeat (6) Hyponatremia: Plan: suspected 2nd to HCTZ as above which remains on hold. Of note, patient has also recently been started on prozac for depression which can contribute TSH wnl. Serum osm 268 IVF ordered w/ NSS and Na improved to 131 and additional IVF as above and will monitor COnsideration to NOT resume HCTZ at dc as above (7) Anxiety: Plan: reason for visit to PCP for f/u on recent prozac rx, 2nd to increased stress with her at home/lot to care for. Agree, while in room does seem to very regimented and wanting things done "now" as reported by patient day prior in ER. 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 TSH wnl Keep K/mag replete continue monitoring on telemetry Plan continued inpatient stay, hopeful dc in AM 01/15 per discussion with patient (and at bedside) Admission and Anticipated Discharge Date Admission Date: January 13, 2024 Results & Data Results & Data Vital Signs (Past 12 Hours) Vital Signs Temp Pulse Pulse Resp BP Pulse Ox O2 Del Method 01/16/24 02:21 36.4 C L 60 18 168/74 H 94 Room Air 01/15/24 22:11 36.7 C 56 L 18 152/77 H 94 Room Air 01/15/24 21:56 58 L PG Care Time/CCT Total # of Minutes Spent Total Time Spent with Patient: Total time spent is greater than 50% in coordination of care (as documented) at patient's floor/unit and/or counseling patient: Coding Diagnoses NSTEMI (non-ST elevated myocardial infarction) I21.4 Hypertension I10 Chest pain R07.9 Elevated troponin R79.89 Hypokalemia E87.6 Hyponatremia E87.1 Anxiety F41.9 Afib I48.91
[2024-01-16] MEDS: fentaNYL citrate PF 100 MCG/2 ML VIAL ONE (08:00)
[2024-01-16] MEDS: PANTOprazole 40 MG TAB PO SCH (08:05)
[2024-01-16 08:10] VITALS: TEMP 98.1
[2024-01-16] MEDS: POTASSIUM CHLORIDE CRTAB 20 MEQ TABCR PO STA (08:13)
[2024-01-16] MEDS: LORazepam 0.5 MG TAB PO PRN (09:37)
[2024-01-16 10:00] VITALS: BP 179/66
--- NOTE | 2024-01-16 10:20 | Discharge Summary ---
Date of Service January 16, 2024 Admission HPI Per Admitting Provider Jessica is an 78 year old female with a PMH significant for CAD S/P VIRGIL x 5, spontaneous pontine hemorrhagic stroke due to HTN, HTN, anxiety, paroxysmal afib (not on anticoagulation due to previous brain hemorrhage), GERD, vertigo, who presented to the [facility] ED on 01/13/24 from her PCP's office after sustaining substernal chest pain with radiation to the left arm on 01/11 with new ECG changes in office today. On arrival to the ED she was noted to be hypertensive at 220/73, hypoxic at 85% on RA, but otherwise stable. Labs were significant for a potassium of 3.1, sodium of 132, mag of 1.7, and initial high sen trop of 20. Chest xray was read as negative for acute findings. ECG today shows sinus bradycardia with 1st degree AV block and RBBB (no previous ECG's in our system to compare to). Prior to admission the patient was given 324 mg Aspirin. At the time of the exam the patient was sitting in bed in no acute distress, still hypertensive with systolics in the 220's. States that she has always had issues with high blood pressure. Is normally in NSR but can usually feel when she goes into afib. States that she was woken from sleep the morning of 01/11 with what she thinks was afib. Caused left-sided chest discomfort which resolved after approximately one hour. Denies the discomfort radiating anywhere else. Currently is chest pain free. Has been taking her antihypertensives as prescribed without missed doses recently. No recent fever, chills, SOB, cough, hemoptysis, nausea, vomiting, diarrhea, dysuria, hematuria, melena, LE swelling, and recent trauma. She is a full code code and her would make medical decisions for her if she cannot make them herself. Please refer to Dr. Jc's attestation for any changes to the treatment plan Admission Exam Per Admitting Provider Physical Exam: General: In no acute distress, stated age, well-nourished, non-toxic appearing HEENT: Normocephalic, atraumatic, no scleral icterus, pupils around round, symmetrical, and reactive to light, moist mucus membranes, trachea midline, no thyromegaly Chest/Pulm: No respiratory distress, symmetrical chest expansion, clear breath sounds throughout Cardiac: RRR, no murmurs noted Abdomen: Negative for ascites and bruising, normoactive bowel sounds, soft, non- tender to palpation throughout Musculoskeletal: Symmetrical and without signs of acute trauma, upper and lower extremities with full ROM, no atrophy, spasticity, or flaccidity Extremities: Radial, dorsalis pedis, and posterior tibial pulses are intact and symmetrical, no edema noted in the BL LE's Skin: Warm, dry, no rashes , lesions, or scars noted Neuro: Alert and oriented to person, place, month, year, and president, no focal defects, no tremors noted Psych: No acute distress, calm and cooperative during the exam Principal Diagnosis STEMI Discharge Exam General: 78 yo sitting up in bed, left while awaiting discharge, able to be much more calm/less anxiety without him present, NAD and denies chest pain at this time/ready to go home Head atraumatic, normocephalic, chronic neck pain/unchanged, baseline double vision unchanged from prior stroke but stable Resp even/unlabored, no w/c/r, on room air CV: RRR, faint systolic murmur, no pitting edema/calf tenderness, pulses palpable R radial site looks good GI: +BS, soft/NT : no cantu MSK/Neuro: nonfocal , answering questions appropriately, not confused, following commands Psych: AOx3, cooperative with exam Discharge Data Allergies Allergy/AdvReac Type Severity Reaction Status Date / Time morphine Allergy Unknown HIVES ALL Verified 01/13/24 20:55 OVER BODY, INCREASED BP Penicillins Allergy Unknown CAUSED Verified 01/13/24 20:55 C-DIFF vancomycin Allergy Unknown HIVES, Verified 01/13/24 20:55 ELEVATED BP Consultations 01/13/24 18:39 ED Decision to Admit Stat 01/13/24 20:27 Consult Cardiology Routine 01/14/24 11:29 Consult Cardiology Routine Procedures Performed Operation Date: 01/15/24 09:00 Actual Procedures p Cath, Coronaries ONLY (no LV) - Gael Camejo MD, PhD s Cineradiography w/Routine Exam - Gael Camejo MD, PhD p Drug Eluting Stent SGl Vessel - Gael Camejo MD, PhD Ordered Studies Chest X-Ray 01/13/24 17:39 SINGLE VIEW CHEST CLINICAL HISTORY: Atypical chest pain FINDINGS: A PA chest radiograph is obtained. No prior studies are available for comparison at the time of dictation. The heart is mildly enlarged noting atherosclerotic calcification of the thoracic aorta. The pulmonary vasculature is noncongested. The lungs and pleural spaces are clear. No pneumothorax is seen. The skeletal structures are osteopenic. The bony thorax is grossly intact. Cholecystectomy clips are noted in the right upper quadrant. An electronic device projects over the heart. IMPRESSION: Mild cardiomegaly with no active disease in the chest. ACT 112: Negative or not required by law. Electronically signed by: Abner Barakat M.D. 01/13/2024 6:25 PM ECHO 01/14/2024 There is no study for comparison available. Preserved LV systolic function (EF 55-60%), with grade I diastolic dysfunction. No segmental wma. Normal RV size and function. Mild MR and TR, trace AI Hospital Course (1) NSTEMI (non-ST elevated myocardial infarction): Sent to ER per PCP office due to chest discomfort morning 01/11 and HTN w/ possible new EKG changes (although RBBB does not appear to be new). Also didn't take her nitro at home due to thinking it was . 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 Last stent per patient ~2013 HTN emergency w/ BP to 243/105 on admission. Troponin elevation 2nd to demand ischemia from HTN emergency/suspected unstable angina initially--> NSTEMI Trop 20--> 24.6--> 47.5 --> 35.5, suspected demand ischemia/NSTEMI Nitro PO x 1 SL w/ improvement AM 01/13 but recurrence and cardiology consulted (follows with Dr James) and nitropaste q6h added and initially planned for cath on 01/13 but was rescheduled given improvement/stability until AM 01/[address] Camejo ECHO: There is no study for comparison available. Preserved LV systolic function (EF 55-60%), with grade I diastolic dysfunction. No segmental wma. Normal RV size and function. Mild MR and TR, trace AI s/p cardiac cath with Dr Camejo on 01/14 Coronary angiography findings: EPI-zvrjw-dvitnwn vessel bifurcating into LAD and circumflex. There is an ostial 30 to 40% stenosis and mild calcification. GIR-nfcqx-zctiilk and transapical. Provides a large septal branch and at the same level a medium caliber branching first diagonal. Proximal LAD has up to 40% narrowing. The diagonal has ostial 50% narrowing and then proximal 60 to 70% narrowing before the vessel branches number of times. Diameter of the vessel appears to be less than 2 mm. The mid LAD has a previously placed stent with in-stent restenosis of 40 to 50%. Distal LAD without significant disease. LCx-medium to large caliber and probably nondominant. Proximal segment with 20% stenosis. Provides a large caliber branching OM1. This has an ostial to proximal 95% stenosis and then there is a previously placed stent without significant in-stent restenosis. After this, the OM branches several times and there is mild luminal irregularities. Mid AV groove circumflex is medium caliber. Right after the ostium of the OM there appears to be 30% stenosis and the vessel has no disease. It provides a medium caliber OM 2 which has no disease. The distal AV groove vessel tapers further and has no disease before it terminates. RCA-medium caliber and probably dominant. Proximal vessel with diffuse 50 to 70% stenosis. Previously placed stent extending from proximal through mid vessel has diffuse up to 99% or more in-stent restenosis. SHAUN I flow beyond th is. No evidence of thrombus. Distal RCA does not appear to have significant disease and transitions to the PDA. No evident disease in this segment. PCI of OM 1-95% stenosis is reduced to 0% stenosis post PCI SHAUN-3 flow post PCI No evidence of dissection or perforation post PCI Summary: 1. Patient has in-stent restenosis in the previously placed LAD and RCA stents. The previously placed OM stent is patent. 2. Severe stenosis of the OM1 in the unstented segment. This is the best target for PCI. Diagonal 1 vessel is too small for PCI. The RCA in-stent restenosis appears to have low likelihood for success given chronic and severe stenosis. 3. Successful PCI of the OM1. Implantation of a drug-eluting stent overlapped with the previously placed stent. 4. Dual antiplatelet therapy with aspirin 81 mg daily and Brilinta 90 mg p.o. twice daily. 5. Optimize medical therapy for secondary prevention of coronary disease as tolerated. This should include aspirin, beta-kayla, ARB, and high intensity statin therapy or PCSK9 inhibitor if tolerated. Lipid panel added given no prior in system, cholesterol 219, HDE600. Messaged S katja Ordoñez last evening inquiring about statin therapy/patient did not tolerate in the past. Discussed w/ patient and agreed didnt' tolerate statin/zetia, however discussed given significant CAD/STEMI/PCI during current hospitalization in patient w/ 5 prior stents would benefit from continued discussions about newer PCSK9 inhibitor if tolerated A1c not checked however AM glu NEVER elevated but can be f/u PCP for risk stratifiction At discharge : ASA + Brillinta 90mg PO BID, outpatient f/u cardiology. Her home metoprolol and valsartan continued but HCTZ STOPPED due to electrolyte abn on admission/dehydration and given her hx parosyxmal afib would like to avoid having hypokalemia to risk irritation. Further discussed w/ patient she was on hydralazine but took for 2 days and made dizzy and stopped this. She was previously on amlodipine and tolerated without issue and this was started at discharge. Of note, patient doing well AM prior to dc and had to stay overnight due to timing for air out of TR band but was quite upset and not wanting to drive in dark and agreed to monitor overnight and dc in AM. He arrived early in AM and demanding discharge and upset she wasn't ready and patient BP increased to 200s/68 from 168/74 previously and was provided ativan PO along with her metoprolol and dose hydralazine(metoprolol prior was held due to HR 58 evening prior but instructed should be continued on such, julia w/ her hx paroxysmal afib not on AC and also remained on amiodarone while inpatient, TSH wnl 3.94 as checked given hyponatremia but suspect from HCTZ use/dehydration). Improvement in BP 176/66 prior to dc and patient remained CP free and wanting to go home. Instructed to continue prn ativan, short course given and f/u PCP. May benefit better from this rather than prozac as also has situational anxiety and lot of stress taking care of her at home. They moved from [place] to [place] in 2019 and still unpacked. Support provided. Reported felt safe in current environment but has been stressful since the move. Also instructed to continue her PPI daily while on DAPT. No bleeding reported. Avoidance of NSAIDs recommended Outpt f/u PCP/cardiology and recs for cardiac rehab as well. Rec'd to monitor BP at home/keep log. Could consider clonidine for BP/anxiety but would discuss w/ PCP/cards given risk for rebound HTN and given her hx CVA/brain bleed would defer starting this and leave to outpatient providers in follow up if BP remaining elevated with adequate hydration and restarting amlodipine. (2) Hypertension: HTN emergency w/ BP to 243/105 on admission. Troponin elevation 2nd to demand ischemia from HTN emergency/NSTEMI as above Hydralazine IV available, was given nitro SL for CP/nitropaste as above and no CP since discontinuing nitropaste (has rx for NITRO SL doesn't exp until 2024) Continued valsartan daily, metoprolol (however w/ hold parameters this was held but should be continued and given x 1 NOW dose AM 6 along w/ hydralazine and ativan as above) DISCONTINUED her HCTZ due to electrolyte abn/suspected dehydration on exam on admission w/ improvement in Na w/ IVF and holding further diuretic therapy. No hx CHF/LE edema or hypoxia/orthopnea STARTED amlodipine at discharge and continue home valsartan/metoprolol. --Reports did NOT tolerate hydralazine in past 2nd to dizziness (however unclear if was during dehydration/prozac use/possible hyponatremia) however given such did avoid but did tolerate the IV as needed for significant elevations and can be discussed w/ usual director mortgage in follow up BP 179/66 prior to dc. Also sent short course low dose ativan as needed for anxiety and instructed patient to keep log of BPs at home for follow up appts/adjustment to meds as needed (3) Chest pain: As above, s/p cardiac cath and stent to OM1, NO FURTHER CP REPORTED SINCE CATH/STENT Outpt f/u (4) Elevated troponin: See above, s/p cath as outlined above (5) Hypokalemia: suspect 2nd to HCTZ use which had been placed on hold. PO supplementation orde red and improvement in PO. K 3.4 prior to dc and additional PO supplementation ordered. Mag stable 2.0 Given continued lows, decision to STOP HCTZ at dc given underlying hx parox afib and not able to be on AC (however suspect was from too much coumadin/elevated INR however can f/u discussions at dc with outpatient providers) (6) Hyponatremia: suspected 2nd to HCTZ as above which remained on hold/discontinued at discharge as above. Serum osm low 268 IVF w/ NSS ordered, Na 130--> 133 prior to discharge. Chl also normalized to 99 NO FURTHER HCTZ at dc, encouraged adequate hydration Of note, also recent rx prozac this year can also contribute TSH wnl F/u PCP for ongoing monitoring/labs as needed. No lightheaded/dizziness reported \\ (7) Anxiety: reason for visit to PCP for f/u on recent prozac rx, 2nd to increased stress with her at home/lot to care for. Agree, while in room does seem to very regimented and wanting things done "now" as reported by patient day prior in ER. Remains on prozac daily Recommend f/u PCP -- DID SEND SHORT RX ativan 0.25mg to use prn as effective this morning 2nd to /anxiety and demanding to have her ready for discharge. (Of note, patient did report she feels safe at home/never hit, he is just very impatient/worsened dementia over the years, poor family support it seems despite them living close by/move to [place] from [place]) (8) Afib: hx paroxysmal afib, not on AC due to hemorrhagic cva in the past (patient reported this was due to coumadin use/supratherapeutic INR at that time) but has tolerated aspirin well remains in NSR/SB on telemetry TSH wnl To continue metoprolol, amiodarone at [place]. No AC due to brain bleed in past Outpt f/u Dr James (9) HLD (hyperlipidemia): NOT on statin at baseline, intolerance to statin/zetia in past reported Lipid panel checked as none in system given cardiac hx/NSTEMI as above -- CHOLESTEROL ELEVATED to 219, LDL 146. HDL 50. TRG 113 -- > DIscussed w/ patient and should have f/u discussions w/ cardiology or PCP regarding starting Plan discharged home with Plan: Continue DAPT with ASA 81mg Brillinta 90mg PO BID Continue BB/ARB. [place] rx for amlodipine for BP DC'd HCTZ due to electrolyte abnormalities. Monitor BP/log at home F/u cardiology (or PCP) for new PCSK9 inhibitor if tolerated for cholesterol given intolerance to statin/zetia and elevated cholesterol 219/LDL 146 F/u PCP re: depression/anxiety. Conitnued on prozac but short rx ativan for anxiety/stress at home provided Total Time Total Time Spent Total Time Spent (In Minutes): 50 Discharge Plan Discharge Items Patient Disposition: Home - Self-Care Reason For Visit: CHEST PAIN, HYPERTENSION Discharge Diagnosis: STEMI Goals: You have been hospitalized for an urgent problem which required surgery. During your stay at [facility], we have made an effort to correct the problem that brought you to the hospital while keeping you as comfortable as possible. Surgery and medications were used to bring your condition under control and your discharge instructions will include directions for any medications you should take after leaving the hospital. Please make sure to follow the advice of your surgeon regarding follow up with the surgeon and with your primary care provider. Activity: As commented below Non-emergency contact: Primary Care Provider and Nurse Practitioner Call non-emergency contact if: you have any medication questions, your symptoms worsen, your pain is not controlled and you have a fever Follow-up/Referrals: Gael Camejo MD, PhD [Physician] - Alex James DO [Physician] - Betsy Myrick MD [Primary Care Provider] - Diet: Heart Healthy and Low Sodium (2gm) Addtl Attending Provider Instructions: You have been hospitalized for chest pain that was cardiac in nature. Cardiology was consulted and you underwent catheterization and stent placement and recommendations are to continue both aspirin AND Brilinta. Brillinta will be TWICE daily. You should take your omeprazole DAILY while on this. Please avoid anti-inflammatories like aleve/motrin/ibuprofen/etc. We have checked a lipid panel and your cholesterol has been elevated. Given you did not tolerate statin/zetia in the past, it has been discussed with your usual director mortgage group and can follow up in the office to discuss one of the newer injectables to help further reduce risks for future events. Your blood pressure was elevated and I do suspect a component of anxiety from stressors at home are contributing however I would have you HOLD off on resuming your hydrochlorothiazide for now to prevent dehydration and blood pressures have been stable on your home metoprolol and valsartan at this time and we have added back amlodipine 5mg daily which you have tolerated in the past. With regards to depression/anxiety, prozac seems to have been helpful however can cause elevations in blood pressure. I have discussed with you about potentially using low dose ativan 0.25mg which was made available in the hospital and effective and short course has been sent at discharge and you can continue to discuss ongoing treatment with this with primary care. This can be further increased as needed but we have started at the lowest possible dose for you to prevent side effects. Please keep a log of your blood pressures to take with you to your follow up visit. Low salt diet is recommended as well. You should follow up with both primary care and cardiology in the next week to monitor your status after hospitalization. Please return to the ER with any repeat chest pain, shortness of breath, fever/chills, or for any other symptoms concerning for you. It has been a pleasure being a part of the medical team providing for you while you have been in the hospital. Take care! Pending Studies at Discharge: No Stand-Alone Forms: My [facility] [employer], Smoking Cessation Medications and DC Order Prescriptions: New Brilinta 90 mg tablet 90 mg PO BID Qty: 60 0RF lorazepam 0.5 mg Tablet 0.25 mg PO DAILY PRN (Reason: anxiety) Qty: 7 0RF amlodipine 5 mg tablet 5 mg PO DAILY Qty: 30 0RF Continued valsartan 320 mg tablet 320 mg PO QDL aspirin [Giovanni Low Dose Aspirin] 81 mg Tablet,Delayed Release (Dr/Ec) 81 mg PO QDL amiodarone 200 mg tablet 100 mg PO QPM fluoxetine 10 mg capsule 10 mg PO QPM metoprolol succinate 100 mg tablet extended release 24 hr 100 mg PO HS Emgality Pen 120 mg/mL Pen Injector See Rx Instructions .ROUTE .COMPLEX Rx Instructions: 120 mg subcutaneously ONCE PER MONTH (PATIENT TAKES ON THE 8TH OR 9TH OF EACH MONTH) Changed omeprazole 20 mg capsule,delayed release(DR/EC) 20 mg PO DAILY 30 Days Qty: 0 0RF Discontinued hydrochlorothiazide 25 mg tablet 25 mg PO QDL Discharge Orders: Discharge Order (Routine); Ordered 01/16/24 Ordered By: Isaura Cruz/Other Patient Handouts: Boosting Your Mental Health, ED Domestic Violence Admission Data Admit Date/Time: 01/13/24 20:01 Attending Provider: Gume Manzo Admit Provider: Lukasz Jc Primary Care Provider: Betsy Myrick Other Providers: Lukasz Jc; Alex James; Gael Camejo Other Interventions: Discharge Summary Assessment (RN) Last Done: 01/16/24 10:45 Supervising Physician Co-Signing Physician Notes The patient was not seen by me. The chart was reviewed. Case discussed with NAIMA Araiza. Agree with assessment and plan Coding Level of Care Code 31077 INP/OBS DISCH >30 MIN Diagnoses NSTEMI (non-ST elevated myocardial infarction) I21.4 Hypertension I10 Chest pain R07.9 Elevated troponin R79.89 Hypokalemia E87.6 Hyponatremia E87.1 Anxiety F41.9 Afib I48.91 HLD (hyperlipidemia) E78.5
[2024-01-16 12:14] VITALS: PULSE 56
--- NOTE | 2024-01-17 09:10 | Coding Query ---
CODING QUERY To promote full compliance with coding requirements relating to patient care, provider participation is requested in all cases of tamper operator uncertainty. Please assist us with the question(s) below: Coding Question(s): Pt admitted with hypertensive emergency. Hx of prior coronary stent. Cardiac cath revealed in-stent re-stenosis of existing coronary stent. Patient also with demand ischemia. Discharge Summary stated STEMI./ demand ischemia . Cardiac labourers initial diagnosis NSTEMI / final diagnosis severe coronary artery disease. Please check below the diagnosis , after study that was treated during this inpatient stay. Thanks for your help! Emiliano NUNEZ [facility] Physician's Response(s): NSTEMI Demand Ischemia ___x Other: please document: NAIMA Araiza patient Principal Diagnosis: "that condition established after study, to be chiefly responsible for occasioning the admission of the patient to the hospital for care." Co-Existing Principal Diagnosis: "when two or more diagnoses equally meet the criteria for principal diagnosis as determined by the circumstances of admission, diagnostic work up, and/or therapy provided, and the Alphabetic Index, Tabular List, or another coding guideline does not provide sequencing direction, any one of the diagnoses may be sequenced first." "When the physician has documented what appears to be a current diagnosis in the body of the record, but has not included the diagnosis in the final diagnostic statement, the physician should be asked whether the diagnosis should be added." (Source Coding Clinic 2 QTR90. p3-4) GISELAD
== END 2024-01-16 11:00 | disposition home or self-care (01) | DRG 322 ==
LOC: ED 17:31 → EDINP 20:01 → SUATTDRO 20:01 → 2S 21:36
PROC: CLB.CCO (2024-01-15 09:00)